=== PATIENT | male | born 1970 | race Caucasian/White ===

== ENCOUNTER 2017-03-15 15:42 | Inpatient (IN) | payer MEDICAID, OTHER ==
[2017-03-15] MEDS ORDERED: Sodium Chloride 0.9% 1,000 ML IV STA (16:33)
[2017-03-15] MEDS ORDERED: Folic Acid 1 MG, Thiamine 100 MG, Multivitamin (MVI) 10 ML in Dextrose 5% In Water 1,00... IV SCH (16:45)
--- NOTE | 2017-03-15 16:53 | ED PDOC ---
Arrival/HPI - General Chief Complaint: Abdominal Pain Time Seen by Provider: 03/15/17 15:57 Historian: Patient - History of Present Illness Narrative History of Present Illness (Text): 03/15/17 16:52 46 year old male whose past medical history of alcohol use, states he chronically drinks, presents to the emergency department with epigastric pain and episode of bloody vomiting prior to arrival. No relieving or exacerbating factors. No chest pain, shortness of breath, or other complaints. Time/Duration: Prior to Arrival Symptom Onset: Sudden Symptom Course: Unchanged Modifying Factors (Text): None Past Medical History - Provider Review Nursing Documentation Reviewed: Yes - Infectious Disease Hx of Infectious Diseases: None - Tetanus Immunization Tetanus Immunization: Unknown - Past Medical History Past Medical History: No Previous - Cardiac Hx Cardiac Disorders: No Hx Hypertension: No - Pulmonary Hx Respiratory Disorders: No Hx Tuberculosis: No - Neurological Hx Neurological Disorder: No HX Cerebrovascular Accident: No Hx Seizures: No (Denies withdrawl seizures) - HEENT Hx HEENT Disorder: No - Renal Hx Renal Disorder: No - Endocrine/Metabolic Hx Endocrine Disorders: No - Hematological/Oncological Hx Blood Disorders: No Hx Cancer: No - Musculoskeletal/Rheumatological Hx Falls: No - Genitourinary/Gynecological Hx Sexually Transmitted Diseases: No - Psychiatric Hx Depression: No Hx Emotional Abuse: No Hx Physical Abuse: No Hx Substance Use: No - Surgical History Hx Appendectomy: Yes - Anesthesia Hx Anesthesia: Yes Hx Anesthesia Reactions: No - Suicidal Assessment Feels Threatened In Home Enviroment: No Family/Social History - Physician Review Nursing Documentation Reviewed: Yes Family/Social History: Unknown Family HX Smoking Status: Never Smoked Hx Alcohol Use: Yes Frequency of alcohol use: Daily Amount per day: 12 Hx Substance Use: No Hx Substance Use Treatment: No Allergies/Home Meds Allergies/Adverse Reactions: Allergies No Known Allergies Allergy (Verified 03/15/17 15:50) Home Medications: Home Meds Medication Instructions Recorded Confirmed No Known Home Med 11/08/16 03/15/17 Review of Systems - Review of Systems Systems not reviewed;Unavailable: Intoxicated Physical Exam - Physical Exam Narrative Physical Exam (Text): pt in no distress, no airway compromise, breathing without difficulty, good insp /exp effort. No signs of head/torso/extremity trauma. Following commands without difficulty. Head: Present: Atraumatic, Normocephalic. No: Tenderness, Contusion, Swelling, Ecchymosis, Abrasion, Laceration Pupils: Present: PERRL Extroacular Muscles: Present: EOMI Conjunctiva: Present: Normal Mouth: Present: Moist Mucous Membranes Neck: Present: Normal Range of Motion. No: MIDLINE TENDERNESS, Paraspinal Tenderness Respiratory/Chest: Present: Clear to Auscultation, Good Air Exchange. No: Respiratory Distress, Accessory Muscle Use Cardiovascular: Present: Regular Rate and Rhythm, Normal S1, S2. No: Murmurs Abdomen: Present: Normal Bowel Sounds. No: Tenderness, Distention, Peritoneal Signs, Rebound, Guarding Back: Present: Normal Inspection. No: Midline Tenderness, Paraspinal Tenderness Upper Extremity: Present: Normal Inspection. No: Cyanosis, Edema Lower Extremity: Present: Normal Inspection. No: Edema Neurological: Present: GCS=15, CN II-XII Intact Skin: Present: Warm, Dry, Normal Color. No: Rashes Lymphatic: Present: OX3, NI, NC Psychiatric: Present: Alert. No: Agitated 03/15/17 18:01 Vital Signs Reviewed: Yes Vital Signs Temp Pulse Resp BP Pulse Ox 03/15/17 20:08 98.2 F 74 18 130/70 99 03/15/17 15:56 97.8 F 71 18 117/71 98 Temperature: Afebrile Blood Pressure: Normal Pulse: Regular Respiratory Rate: Normal Appearance: Positive for: Comfortable Pain Distress: None Mental Status: No: Agitated, Lethargic Finger Stick Blood Glucose: 123 Medical Decision Making ED Course and Treatment: Impression: 46 year old male whose past medical history of alcohol use, states he chronically drinks, presents to the emergency department with epigastric pain and episode of bloody vomiting prior to arrival. On physical exam, patient has no acute findings. Differential Diagnosis include but are not limited to: Gastritis versus anemia versus upper GI bleed Plan: -- Chest X-ray -- Protonix -- IV fluids -- Labs -- Reassess and disposition Prior Visits: Notes and results from previous visits were reviewed. Patient last seen in the ED on 11/08/16 for alcohol intoxication and discharged home. Progress Notes: EKG shows NSR at [address]-segment elevations, normal intervals. with no prior for comparison. Interpreted by me. - Lab Interpretations Lab Results: 03/15/17 16:20 03/15/17 16:20 Lab Results 03/15/17 17:05: Urine Color Yellow, Urine Appearance Clear, Urine pH 6.5, Ur Specific [place] <= 1.005, Urine Protein 30 H, Urine Glucose (UA) Negative, Urine Ketones Negative, Urine Blood Trace-intact H, Urine Nitrate Negative, Urine Bilirubin Negative, Urine Urobilinogen 2.0 H, Ur Leukocyte Esterase Negative, Urine RBC 0 - 2, Urine WBC Negative, Ur Epithelial Cells 0 - 2, Urine Bacteria Trace 03/15/17 16:20: Transferrin 264.95, Alcohol, Quantitative 478 H* 03/15/17 16:20: TIBC 314 03/15/17 16:20: PT 12.3 H, INR 1.14 H, APTT 31.7 H 03/15/17 16:20: WBC 4.1 L D, RBC 3.83, Hgb 13.3 L, Hct 37.8 L, MCV 98.7, MCH 34.7, MCHC 35.2, RDW 14.5, Plt Count 54 L, MPV 10.4, Gran % 61.0, Lymph % (Auto ) 30.4, Gregory % (Auto) 6.9 H, Eos % (Auto) 0.5 L, Baso % (Auto) 1.2, Gran # 2.49 , Lymph # 1.2, Gregory # 0.3, Eos # 0.0, Baso # 0.05 03/15/17 16:20: Blood Type O POSITIVE, Antibody Screen Negative, BBK History Checked No verified bt 03/15/17 16:20: Sodium 143, Potassium 3.8, Chloride 100, Carbon Dioxide 29, Anion Gap 18, BUN 5 L, Creatinine 0.6, Est GFR ( Amer) > 60, Est GFR (Non -Af Amer) > 60, Random Glucose 101, Calcium 9.1, Ferritin 198.0, Total Bilirubin 1.5 H, AST 163 H, ALT 47, Alkaline Phosphatase 254 H, Lactate Dehydrogenase 822 H, Total Creatine Kinase 435 H, CK-MB (CK-2) 4.1 H, CK-MB (CK- 2) % Pending, Troponin I < 0.01, Total Protein 10.1 H, Albumin 4.7, Globulin 5.4 , Albumin/Globulin Ratio 0.9 L, Lipase 83 - RAD Interpretation Radiology Orders: 03/15/17 16:34 CHEST PORTABLE [RAD] Stat - EKG Interpretation Interpreted by ED Physician: Yes Type: 12 lead EKG - Medication Orders Current Medication Orders: Folic Acid 1 mg/ Thiamine HCl 100 mg/ Multivitamins/Vitamin C 10 ml/ Dextrose 1 ,011.2 mls @ 100 mls/hr IV .Q10H7M EDWIN Last Admin: 03/15/17 19:19 Dose: 100 mls/hr Discontinued Medications Sodium Chloride (Sodium Chloride 0.9%) 1,000 mls @ 1,000 mls/hr IV .Q1H STA Stop: 03/15/17 17:32 Last Admin: 03/15/17 17:03 Dose: 1,000 mls/hr Pantoprazole Sodium (Protonix Inj) 40 mg IVP STAT STA Stop: 03/15/17 16:34 Last Admin: 03/15/17 17:03 Dose: 40 mg ED OBSERVATION Date of observation admission: 03/15/17 Time of observation admission: 16:00 - Observation admission statement Patient is being placed in observation because:: alcohol intoxication - Goals of Observation Goals of observation are:: pending sobriety - Progress Note Progress Note: 03/15/17 18:00 Patient resting in no acute distress 03/15/17 21:19 On reevaluation, patient is alert and awake, not slurring speech, and is clinically sober. I again questioned patient about his symptoms earlier today. Patient again reports that he had hematemesis earlier. Patient will be observed in the hospital for further evaluation. Patient aware of and agrees with plan. 03/15/17 21:[address] Barlow, accepted pt to remote tele obs EKG shows normal sinus, 73 bpm, no ST segment elevations, PVC. Interpreted by me. Chest x-ray shows mild cardiomegaly, no infiltrates, no effusions. Interpreted by me. - Scribe Statement The provider has reviewed the documentation as recorded by the Terese Haywood Provider Scribe Attestation: All medical record entries made by the Scribe were at my direction and personally dictated by me. I have reviewed the chart and agree that the record accurately reflects my personal performance of the history, physical exam, medical decision making, and the department course for this patient. I have also personally directed, reviewed, and agree with the discharge instructions and disposition. Disposition/Present on Arrival - Present on Arrival Any Indicators Present on Arrival: No History of DVT/PE: No History of Uncontrolled Diabetes: No Urinary Catheter: No History of Decub. Ulcer: No History Surgical Site Infection Following: None - Disposition Have Diagnosis and Disposition been Completed?: Yes Diagnosis: Hematemesis Disposition: HOSPITALIZED Disposition Time: 16:00 Patient Plan: Observation Condition: STABLE
[2017-03-15 16:59] LABS: ADD MANUAL DIFF? NO
[2017-03-15 17:14] LABS: ALB/GLOB RATIO 0.9 (1.1-1.8); ALKALINE PHOSPHATASE 254 U/L (38-133); ALT/SGPT 47 U/L (7-56); AST/SGOT 163 U/L (15-59); BILIRUBIN,TOTAL 1.5 mg/dL (0.2-1.3); BLOOD UREA NITROGEN 5 mg/dL (7-21); CALCIUM 9.1 mg/dL (8.4-10.5); CARBON DIOXIDE 29 mmol/L (21-33); CHLORIDE 100 mmol/L (98-107); GFR AFRICAN-AMERICAN > 60; GLUCOSE,RANDOM 101 mg/dL (70-110); LIPASE 83 U/L (23-300); POTASSIUM 3.8 mmol/L (3.6-5.0); SODIUM 143 mmol/L (132-148); TOTAL PROTEIN 10.1 g/dL (5.8-8.3)
[2017-03-15 17:15] LABS: BASO # 0.05 K/mm3 (0.0-2.0); BASO % 1.2 % (0.0-3.0); EOS % 0.5 % (1.5-5.0); GRAN # 2.49 (1.4-6.5); HEMATOCRIT 37.8 % (42.0-52.0); LYMPH # 1.2 (1.2-3.4); LYMPH % 30.4 % (22.0-35.0); MEAN CELL VOLUME 98.7 fL (80.0-105.0); MEAN CORPUSCULAR HEMOGLOBIN 34.7 pg (25.0-35.0); MEAN CORPUSCULAR HGB CONC 35.2 g/dl (31.0-37.0); MEAN PLATELET VOLUME 10.4 fl (7.0-11.0); MONO # 0.3 (0.1-0.6); MONO % 6.9 % (1.0-6.0); PLATELET COUNT 54 10^3/uL (120.0-450.0); RED CELL DISTRIBUTION WIDTH 14.5 % (11.5-14.5); WHITE BLOOD COUNT 4.1 10^3/ul (4.5-11.0)
[2017-03-15 17:21] LABS: INR 1.14 (0.93-1.08); PARTIAL THROMBOPLASTIN TIME 31.7 Seconds (23.7-30.8)
[2017-03-15 17:27] LABS: TROPONIN I < 0.01 ng/mL
[2017-03-15 17:38] LABS: PH,URINE 6.5 (4.7-8.0); URINE BILIRUBIN NEGATIVE (NEGATIVE); URINE BLOOD TRACE-INTACT (NEGATIVE); URINE GLUCOSE (UA) NEGATIVE (NEGATIVE); URINE KETONE NEGATIVE (NEGATIVE); URINE LEUKOCYTE ESTERASE NEGATIVE Leu/uL (NEGATIVE); URINE PROTEIN 30 mg/dL (<30 mg/dL)
--- NOTE | 2017-03-15 17:42 | RAD ---
HISTORY: cough COMPARISON: No prior. FINDINGS: LUNGS: No active pulmonary disease. PLEURA: No significant pleural effusion identified, no pneumothorax apparent. CARDIOVASCULAR: Normal. OSSEOUS STRUCTURES: No significant abnormalities. VISUALIZED UPPER ABDOMEN: Normal. OTHER FINDINGS: None. IMPRESSION: No active disease.
[2017-03-15 17:44] LABS: URINE APPEARANCE CLEAR (CLEAR); URINE COLOR YELLOW (YELLOW)
[2017-03-15 18:00] LABS: URINE BACTERIA TRACE (NEG); URINE EPITHELIAL CELLS 0 - 2 /hpf (0-5); URINE RBC 0 - 2 /hpf (0-2); URINE WBC NEGATIVE /hpf (0-6)
[2017-03-15 20:41] LABS: TRANSFERRIN 264.95 mg/dL (206-381)
--- NOTE | 2017-03-15 22:56 | CP.PCM.HP ---
<Justin Ackerman - Last Filed: 03/16/17 00:32> History of Present Illness - History of Present Illness History of Present Illness: 46 year old male with past medical history of alcohol abuse presents to [facility] ED with RUQ abdominal pain and hematemesis. Patient reports he has been drinking a case of beer per day for the past 1 week. Patient last alcohol intake was this morning. Patient had 2 episodes of hematemesis this afternoon. Patient was not able to quantify the amount blood was in the vomit and no one else witnessed it. Patient reports his abdominal pain started 2 days ago. He describes the pain as sharp pain, non radiating, 8/10 in intensity. The pain exacerbates with movement. Patient have not eaten any food for the past 2 days, stating that he is very hungry. Patient has multiple ED visits for alcohol intoxication, with last time seen on 11/09/16. Denies trauma, loss of consciousness, headache, fever, chills, shortness of breath, cough, chest pain, diarrhea, constipation, or urinary symptoms. PMD: none PMHx: alcohol abuse PSHx: appendectomy 2010 Allergy: NKDA Social Hx: smokes 5 cigarettes daily, drinks beer daily, denies other drug use. Homeless, staying with a friend for past 2 weeks. Family Hx: non contributory Home med: none Present on Admission - Present on Admission Any Indicators Present on Admission: No History of DVT/PE: No History of Uncontrolled Diabetes: No Review of Systems - Constitutional Constitutional: As Per HPI. absent: Chills, Fever, Headache - EENT Eyes: As Per HPI. absent: Blurred Vision, Loss of Vision Ears: As Per HPI. absent: Dizziness Nose/Mouth/Throat: As Per HPI. absent: Nasal Trauma, Nose Pain - Cardiovascular Cardiovascular: As Per HPI. absent: Chest Pain, Chest Pain at Rest, Chest Pain with Activity, Palpitations, Pedal Edema, Syncope - Respiratory Respiratory: As Per HPI. absent: Cough, Dyspnea, Hemoptysis - Gastrointestinal Gastrointestinal: As Per HPI, Abdominal Pain, Hematemesis, Nausea, Vomiting. absent: Diarrhea - Genitourinary Genitourinary: As Per HPI. absent: Urinary Frequency, Urinary Hesitance, Urinary Urgency - Musculoskeletal Musculoskeletal: As Per HPI. absent: Deformity, Numbness, Tingling - Integumentary Integumentary: As Per HPI. absent: Swelling - Neurological Neurological: As Per HPI. absent: Dizziness, Numbness, Tremor, Vertigo - Psychiatric Psychiatric: As Per HPI. absent: Auditory Hallucinations, Depression, Hallucinations, Visual Hallucinations - Endocrine Endocrine: As Per HPI - Hematologic/Lymphatic Hematologic: As Per HPI Past Patient History - Infectious Disease Hx of Infectious Diseases: None - Tetanus Immunizations Tetanus Immunization: Unknown - Past Social History Smoking Status: Never Smoked - CARDIAC Hx Cardiac Disorders: No Hx Hypertension: No - PULMONARY Hx Respiratory Disorders: No Hx Tuberculosis: No - NEUROLOGICAL Hx Neurological Disorder: No HX Cerebrovascular Accident: No Hx Seizures: No (Denies withdrawl seizures) - HEENT Hx HEENT Problems: No - RENAL Hx Chronic Kidney Disease: No - ENDOCRINE/METABOLIC Hx Endocrine Disorders: No - HEMATOLOGICAL/ONCOLOGICAL Hx Blood Disorders: No Hx Cancer: No - MUSCULOSKELETAL/RHEUMATOLOGICAL Hx Falls: No - GENITOURINARY/GYNECOLOGICAL Hx Sexually Transmitted Disorders: No - PSYCHIATRIC Hx Depression: No Hx Emotional Abuse: No Hx Physical Abuse: No Hx Substance Use: No - SURGICAL HISTORY Hx Appendectomy: Yes - ANESTHESIA Hx Anesthesia: Yes Hx Anesthesia Reactions: No Meds Allergies/Adverse Reactions: Allergies Allergy/AdvReac Type Severity Reaction Status Date / Time No Known Allergies Allergy Verified 03/15/17 15:50 Physical Exam - Constitutional Appears: Non-toxic - Head Exam Head Exam: ATRAUMATIC, NORMAL INSPECTION, NORMOCEPHALIC - Eye Exam Eye Exam: Conjunctival injection, EOMI, PERRL - ENT Exam ENT Exam: Mucous Membranes Moist - Neck Exam Neck exam: Positive for: Normal Inspection - Respiratory Exam Respiratory Exam: Clear to Auscultation Bilateral, NORMAL BREATHING PATTERN. absent: Rhonchi, Wheezes, Respiratory Distress - Cardiovascular Exam Cardiovascular Exam: REGULAR RHYTHM, RRR, +S1, +S2 - GI/Abdominal Exam GI & Abdominal Exam: Normal Bowel Sounds, Soft Additional comments: RUQ abdominal tenderness, negative McBurney's point tenderness - Extremities Exam Extremities exam: Positive for: normal capillary refill, normal inspection, pedal pulses present. Negative for: pedal edema - Back Exam Back exam: NORMAL INSPECTION - Neurological Exam Neurological exam: Alert, Oriented x3 - Psychiatric Exam Psychiatric exam: Normal Affect, Normal Mood - Skin Skin Exam: Dry, Normal Color, Warm Results - Vital Signs Recent Vital Signs: Last Vital Signs Temp 98.2 F 03/15/17 20:08 Pulse 74 03/15/17 20:08 Resp 18 03/15/17 20:08 BP 130/70 03/15/17 20:08 Pulse Ox 99 03/15/17 20:08 - Labs Result Diagrams: 03/15/17 16:20 03/15/17 16:20 Labs: Laboratory Results - last 24 hr 03/15/17 18:00 Blood Type Confirm O POSITIVE Assessment & Plan - Assessment and Plan (Free Text) Assessment: 46 year old male with past medical history of alcohol abuse presents with hematemesis Plan: Hematemesis -Yoli Marie tear vs acute gastritis -Two episodes of self reported hematemesis associated with hx of heavy alcohol use -Hgb 13.3, follow up repeats -Protonix IV 40mg Q12 -IVF NS 125ml/hr -NPO -GI consult, Dr. Owens help appreciated Alcohol intoxication -[facility] protocol -Seizure precaution -Banana bag given in the ED -Start IVF NS 125ml/hr -Multivitamin, thiamine, folic acid po -Ativan 1mg Iv Q6 prn -Cessation is strongly advised -PT eval RUQ Abdominal pain -No leukocytosis, afebrile -Elevated AST -Serum alcohol 478 -Lipase not elevated -GI consult, Dr. Owens help appreciated Elevated CK -Total creatine kinase 435 -IVF NS 125ml/hr -Follow up AM labs Prophylactic measures -Protonix IV for GI ppx -SCD for DVT ppx <Nicola Barlow - Last Filed: 03/16/17 01:41> Results - Vital Signs Recent Vital Signs: Last Vital Signs Temp 98.5 F 03/16/17 00:11 Pulse 88 03/16/17 00:11 Resp 20 03/16/17 00:11 BP 137/81 03/16/17 00:11 Pulse Ox 97 03/16/17 00:11 - Labs Result Diagrams: 03/15/17 16:20 03/15/17 16:20 Labs: Laboratory Results - last 24 hr 03/15/17 18:00 Blood Type Confirm O POSITIVE Attending/Attestation - Attestation I have personally seen and examined this patient.: Yes I have fully participated in the care of the patient.: Yes I have reviewed all pertinent clinical information: Yes Notes (Text): 03/16/17 01:39 Patient was seen when he was in ISO room in the ER . Agree with history , physical examination , assessment and plan. On examination left leg has soft tissue swelling on proximal, lateral aspect , which is non tender. Both eyes are injected.Has tremors on outstreched arms.
[2017-03-16] MEDS: Sodium Chloride 0.9% 1,000 ML IV SCH (00:15)
[2017-03-16 02:04] LABS: HEMATOCRIT 33.3 % (42.0-52.0)
[2017-03-16 09:17] LABS: ADD MANUAL DIFF? NO
[2017-03-16 09:19] LABS: BASO # 0.02 K/mm3 (0.0-2.0); BASO % 0.6 % (0.0-3.0); EOS % 0.6 % (1.5-5.0); GRAN # 2.33 (1.4-6.5); GRAN % 72.4 % (50.0-68.0); HEMATOCRIT 33.3 % (42.0-52.0); LYMPH # 0.7 (1.2-3.4); LYMPH % 20.8 % (22.0-35.0); MEAN CELL VOLUME 98.8 fL (80.0-105.0); MEAN CORPUSCULAR HEMOGLOBIN 34.4 pg (25.0-35.0); MEAN CORPUSCULAR HGB CONC 34.8 g/dl (31.0-37.0); MEAN PLATELET VOLUME 10.8 fl (7.0-11.0); MONO # 0.2 (0.1-0.6); MONO % 5.6 % (1.0-6.0); PLATELET COUNT 37 10^3/uL (120.0-450.0); RED CELL DISTRIBUTION WIDTH 14.6 % (11.5-14.5); WHITE BLOOD COUNT 3.2 10^3/ul (4.5-11.0)
[2017-03-16 09:28] LABS: ALB/GLOB RATIO 0.9 (1.1-1.8); ALKALINE PHOSPHATASE 222 U/L (38-133); ALT/SGPT 42 U/L (7-56); AST/SGOT 122 U/L (15-59); BILIRUBIN,TOTAL 1.7 mg/dL (0.2-1.3); BLOOD UREA NITROGEN 4 mg/dL (7-21); CARBON DIOXIDE 26 mmol/L (21-33); CHLORIDE 103 mmol/L (98-107); GFR AFRICAN-AMERICAN > 60; GLUCOSE,RANDOM 97 mg/dL (70-110); POTASSIUM 3.5 mmol/L (3.6-5.0); SODIUM 140 mmol/L (132-148); TOTAL PROTEIN 8.2 g/dL (5.8-8.3)
[2017-03-16] MEDS ORDERED: Potassium Chloride 20 mEq ER Tab PO ONE (09:45)
[2017-03-16] MEDS: Multivitamin With Minerals Tab PO SCH (10:16)
[2017-03-16] MEDS ORDERED: Magnesium Sulfate 1 gm in D5W 1 GM/100 ML BAG IVPB ONE ×2 (10:18→11:21)
--- NOTE | 2017-03-16 10:32 | CP.PCM.CON ---
<Phililp Avilez - Last Filed: 03/16/17 13:17> History of Present Illness - History of Present Illness History of Present Illness: PGY4 GI Fellow Consult Note Patient is a 46yo male with PMHx significant for EtOH abuse who presented to the ED with abdominal pain, nausea and vomiting. The patient admits to heavy EtOH use with alcohol intake up until the day of admission. He is drinking anywhere from two 40 oz beers to 10+ bottles of beer per day. For the past two weeks he has had an intermittent, right-sided, poking abdominal pain. Pain does not radiation and worsens after bouts of alcohol intake. He states that he wakes each morning, nauseated and often vomits. On the morning of admission he awoke and vomited a mixture of bile and dark brown particles. He denies any soto red hematemesis. The patient goes long stretches without food and only alcohol intake, including the 2 days leading up to admission. He is homeless and living with a friend at present. Denies any melena, hematochezia, fever, chills, weight loss. PMHx: See HPI PSHx: Appendectomy FHx: Mother - DM Social: +Tobacco use (2-3 cig/day); +EtOH use daily; denies any illicit drug use Endo: Denies prior endoscopic evaluation Review of Systems - Constitutional Constitutional: absent: Anorexia, Chills, Fever - EENT Eyes: absent: Change in Vision Nose/Mouth/Throat: absent: Sore Throat - Cardiovascular Cardiovascular: absent: Chest Pain, Dyspnea, Edema - Respiratory Respiratory: absent: Cough, Hemoptysis, Excessive Mucous Production - Gastrointestinal Gastrointestinal: Abdominal Pain, Hematemesis, Nausea, Vomiting. absent: Bloating, Constipation, Cramping, Diarrhea, Dyspepsia, Dysphagia, Heartburn, Hematochezia, Loose Stools, Melena - Genitourinary Genitourinary: absent: Dysuria, Urinary Frequency, Urinary Urgency - Musculoskeletal Musculoskeletal: absent: Back Pain, Neck Pain - Integumentary Integumentary: absent: New Lesions, Rash - Neurological Neurological: absent: Dizziness, Numbness, Focal Weakness - Psychiatric Psychiatric: absent: Anxiety, Depression - Endocrine Endocrine: absent: Polydipsia, Polyphagia, Polyuria - Hematologic/Lymphatic Hematologic: absent: Easy Bleeding, Easy Bruising, Lymphadenopathy Past Patient History - Infectious Disease Hx of Infectious Diseases: None - Tetanus Immunizations Tetanus Immunization: Unknown - Past Social History Smoking Status: Never Smoked - CARDIAC Hx Cardiac Disorders: No Hx Hypertension: No - PULMONARY Hx Respiratory Disorders: No Hx Tuberculosis: No - NEUROLOGICAL Hx Neurological Disorder: No HX Cerebrovascular Accident: No Hx Seizures: No (Denies withdrawl seizures) - HEENT Hx HEENT Problems: No - RENAL Hx Chronic Kidney Disease: No - ENDOCRINE/METABOLIC Hx Endocrine Disorders: No - HEMATOLOGICAL/ONCOLOGICAL Hx Blood Disorders: No Hx Cancer: No - MUSCULOSKELETAL/RHEUMATOLOGICAL Hx Falls: No - GASTROINTESTINAL Hx Gastrointestinal Disorders: No - GENITOURINARY/GYNECOLOGICAL Hx Sexually Transmitted Disorders: No - PSYCHIATRIC Hx Depression: No Hx Emotional Abuse: No Hx Physical Abuse: No Hx Substance Use: No - SURGICAL HISTORY Hx Appendectomy: Yes - ANESTHESIA Hx Anesthesia: Yes Hx Anesthesia Reactions: No Meds Allergies/Adverse Reactions: Allergies Allergy/AdvReac Type Severity Reaction Status Date / Time No Known Allergies Allergy Verified 03/15/17 15:50 - Medications Medications: Current Medications Folic Acid (Folic Acid) 1 mg PO DAILY [facility] Last Admin: 03/16/17 10:16 Dose: 1 mg Magnesium Sulfate/Dextrose (Magnesium Sulfate 1 Gm/100 Ml D5w) 1 gm in 100 mls @ 100 mls/hr IVPB ONCE ONE Stop: 03/16/17 11:17 Lorazepam (Ativan) 1 mg IVP Q6H PRN; Protocol PRN Reason: Seizure activity Last Admin: 03/16/17 00:14 Dose: 1 mg Multivitamins/Minerals (Therapeutic-M Tab) 1 tab PO DAILY [facility] Last Admin: 03/16/17 10:16 Dose: 1 tab Pantoprazole Sodium (Protonix Inj) 40 mg IVP Q12 [facility] Last Admin: 03/16/17 10:16 Dose: 40 mg Thiamine HCl (Vitamin B1 Tab) 100 mg PO DAILY [facility] Last Admin: 03/16/17 10:16 Dose: 100 mg Physical Exam - Constitutional Appears: Non-toxic, Confused - Eye Exam Eye Exam: EOMI, PERRL - ENT Exam ENT Exam: Mucous Membranes Moist - Respiratory Exam Respiratory Exam: Clear to Auscultation Bilateral. absent: Rales, Rhonchi, Wheezes - Cardiovascular Exam Cardiovascular Exam: RRR, +S1, +S2 - GI/Abdominal Exam GI & Abdominal Exam: Normal Bowel Sounds, Soft. absent: Distended, Firm, Guarding, Organomegaly, Rigid, Tenderness - Extremities Exam Extremities exam: Positive for: normal inspection. Negative for: pedal edema - Neurological Exam Neurological exam: Altered Additional comments: tremulous - Psychiatric Exam Psychiatric exam: Anxious - Skin Skin Exam: Dry, Warm Results - Vital Signs Recent Vital Signs: Last Vital Signs Temp 98.4 F 03/16/17 08:26 Pulse 84 03/16/17 08:26 Resp 17 03/16/17 08:26 BP 142/81 03/16/17 08:26 Pulse Ox 95 03/16/17 08:26 - Labs Result Diagrams: 03/16/17 09:00 03/16/17 09:00 Labs: Laboratory Results - last 24 hr 03/15/17 03/16/17 03/16/17 18:00 01:30 09:00 WBC 3.2 L D RBC 3.37 L Hgb 11.8 L 11.6 L Hct 33.3 L 33.3 L MCV 98.8 MCH 34.4 MCHC 34.8 RDW 14.6 H Plt Count 37 L* MPV 10.8 Gran % 72.4 H Lymph % (Auto) 20.8 L Zavala % (Auto) 5.6 Eos % (Auto) 0.6 L Baso % (Auto) 0.6 Gran # 2.33 Lymph # 0.7 L Zavala # 0.2 Eos # 0.0 Baso # 0.02 Sodium Potassium Chloride Carbon Dioxide Anion Gap BUN Creatinine Est GFR ( Amer) Est GFR (Non-Af Amer) Random Glucose Calcium Magnesium Total Bilirubin AST ALT Alkaline Phosphatase Total Protein Albumin Globulin Albumin/Globulin Ratio Blood Type Confirm O POSITIVE 03/16/17 03/16/17 09:00 09:00 WBC RBC Hgb Hct MCV MCH MCHC RDW Plt Count MPV Gran % Lymph % (Auto) Zavala % (Auto) Eos % (Auto) Baso % (Auto) Gran # Lymph # Zavala # Eos # Baso # Sodium 140 Potassium 3.5 L Chloride 103 Carbon Dioxide 26 Anion Gap 15 BUN 4 L Creatinine 0.5 Est GFR ( Amer) > 60 Est GFR (Non-Af Amer) > 60 Random Glucose 97 Calcium 8.0 L Magnesium 1.5 L Total Bilirubin 1.7 H AST 122 H ALT 42 Alkaline Phosphatase 222 H Total Protein 8.2 Albumin 3.8 Globulin 4.3 Albumin/Globulin Ratio 0.9 L Blood Type Confirm Assessment & Plan - Assessment and Plan (Free Text) Assessment: Patient is a 46yo male with PMHx significant for EtOH abuse who presented to the ED with abdominal pain, nausea and vomiting. -RUQ abdominal pain -Nausea and vomiting -Acute alcohol intoxication -Impending alcohol withdrawal -Alcohol abuse, dependence -Thrombocytopenia Plan: -Suspect frequent nausea/vomiting related to the deleterious effects of alcohol consumption/withdrawal -IVF as ordered -Protonix 40mg IV QD; can switch to 40mg PO QAMAC when fully tolerating PO -Zofran PRN -CIWA protocol for EtOH withdrawal -Advance diet as tolerated -Check abd U/S -No plan for endoscopic intervention at this time -Autoimmune hepatitis work up and viral hepatitis serologies negative in the past -Thank you for allowing us to participate in the care of your patient. Will sign off. - Date & Time Date: 03/16/17 Time: 08:45 <Raj Bailey - Last Filed: 03/16/17 16:03> Meds - Medications Medications: Current Medications Folic Acid (Folic Acid) 1 mg PO DAILY [facility] Last Admin: 03/16/17 10:16 Dose: 1 mg Folic Acid 1 mg/ Thiamine HCl 100 mg/ Multivitamins/Vitamin C 10 ml/ Dextrose 1 ,011.2 mls @ 100 mls/hr IV .Q10H7M [facility] Lorazepam (Ativan) 1 mg PO Q4 [facility] PRN Reason: Protocol Lorazepam (Ativan) 2 mg IVP Q6H PRN; Protocol PRN Reason: Seizure activity Multivitamins/Minerals (Therapeutic-M Tab) 1 tab PO DAILY [facility] Last Admin: 03/16/17 10:16 Dose: 1 tab Pantoprazole Sodium (Protonix Inj) 40 mg IVP Q12 [facility] Last Admin: 03/16/17 10:16 Dose: 40 mg Thiamine HCl (Vitamin B1 Tab) 100 mg PO DAILY [facility] Last Admin: 03/16/17 10:16 Dose: 100 mg Results - Vital Signs Recent Vital Signs: Last Vital Signs Temp 98.4 F 03/16/17 08:26 Pulse 84 03/16/17 08:26 Resp 17 03/16/17 08:26 BP 142/81 03/16/17 08:26 Pulse Ox 95 03/16/17 08:26 - Labs Result Diagrams: 03/16/17 09:00 03/16/17 09:00 Labs: Laboratory Results - last 24 hr 03/15/17 03/16/17 03/16/17 18:00 01:30 09:00 WBC 3.2 L D RBC 3.37 L Hgb 11.8 L 11.6 L Hct 33.3 L 33.3 L MCV 98.8 MCH 34.4 MCHC 34.8 RDW 14.6 H Plt Count 37 L* MPV 10.8 Gran % 72.4 H Lymph % (Auto) 20.8 L Zavala % (Auto) 5.6 Eos % (Auto) 0.6 L Baso % (Auto) 0.6 Gran # 2.33 Lymph # 0.7 L Zavala # 0.2 Eos # 0.0 Baso # 0.02 Sodium Potassium Chloride Carbon Dioxide Anion Gap BUN Creatinine Est GFR ( Amer) Est GFR (Non-Af Amer) Random Glucose Calcium Magnesium Total Bilirubin AST ALT Alkaline Phosphatase Total Protein Albumin Globulin Albumin/Globulin Ratio Blood Type Confirm O POSITIVE 03/16/17 03/16/17 09:00 09:00 WBC RBC Hgb Hct MCV MCH MCHC RDW Plt Count MPV Gran % Lymph % (Auto) Zavala % (Auto) Eos % (Auto) Baso % (Auto) Gran # Lymph # Zavala # Eos # Baso # Sodium 140 Potassium 3.5 L Chloride 103 Carbon Dioxide 26 Anion Gap 15 BUN 4 L Creatinine 0.5 Est GFR ( Amer) > 60 Est GFR (Non-Af Amer) > 60 Random Glucose 97 Calcium 8.0 L Magnesium 1.5 L Total Bilirubin 1.7 H AST 122 H ALT 42 Alkaline Phosphatase 222 H Total Protein 8.2 Albumin 3.8 Globulin 4.3 Albumin/Globulin Ratio 0.9 L Blood Type Confirm Attending/Attestation - Attestation I have personally seen and examined this patient.: Yes I have fully participated in the care of the patient.: Yes I have reviewed all pertinent clinical information: Yes Notes (Text): 03/16/17 16:01 46 year old male with h/o EtOH abuse admitted with abdominal pain, nausea and vomiting. 1. Alcoholic hepatitis 2. Alcohol withdrawal Plan: -recommend PPI therapy -recommend hyrdation, mvi, banana bag -antiemetics as needed -therapy for etoh withdrawal -no indication for steroids -agree with US abdomen -no endoscopy warranted unless significant ongoing bleeding which has not been present
[2017-03-16] MEDS: Folic Acid 1 MG, Thiamine 100 MG, Multivitamin (MVI) 10 ML in Dextrose 5% In Water 1,00... IV SCH (16:44)
[2017-03-17] MEDS: Folic Acid 1 MG, Thiamine 100 MG, Multivitamin (MVI) 10 ML in Dextrose 5% In Water 1,00... IV SCH ×2 (01:31→22:37)
--- NOTE | 2017-03-17 01:45 | CARD ---
APPROVED REPORT EKG Measurement Heart [id number] <Conclusion> Normal sinus rhythm Possible Anterior infarct, age undetermined Abnormal ECG
--- NOTE | 2017-03-17 01:46 | CARD ---
APPROVED REPORT EKG Measurement Heart [id number] ID [id number] <Conclusion> Sinus rhythm with occasional premature ventricular complexes Otherwise normal ECG
[2017-03-17] MEDS: Sodium Chloride 0.9% 1,000 ML IV SCH (03:48)
[2017-03-17 07:23] LABS: ADD MANUAL DIFF? NO
[2017-03-17 07:38] LABS: BASO # 0.02 K/mm3 (0.0-2.0); BASO % 0.5 % (0.0-3.0); EOS % 0.7 % (1.5-5.0); GRAN # 2.76 (1.4-6.5); GRAN % 68.5 % (50.0-68.0); HEMATOCRIT 33.8 % (42.0-52.0); LYMPH # 0.9 (1.2-3.4); LYMPH % 22.6 % (22.0-35.0); MEAN CELL VOLUME 97.4 fL (80.0-105.0); MEAN CORPUSCULAR HEMOGLOBIN 34.3 pg (25.0-35.0); MEAN CORPUSCULAR HGB CONC 35.2 g/dl (31.0-37.0); MEAN PLATELET VOLUME 12.1 fl (7.0-11.0); MONO # 0.3 (0.1-0.6); MONO % 7.7 % (1.0-6.0); PLATELET COUNT 35 10^3/uL (120.0-450.0); RED CELL DISTRIBUTION WIDTH 14.1 % (11.5-14.5)
[2017-03-17 07:44] LABS: ALKALINE PHOSPHATASE 264 U/L (38-133); ALT/SGPT 40 U/L (7-56); AST/SGOT 132 U/L (15-59); BLOOD UREA NITROGEN 3 mg/dL (7-21); CALCIUM 8.7 mg/dL (8.4-10.5); CARBON DIOXIDE 26 mmol/L (21-33); CHLORIDE 98 mmol/L (98-107); GFR AFRICAN-AMERICAN > 60; GLUCOSE,RANDOM 116 mg/dL (70-110); MAGNESIUM 1.8 mg/dL (1.7-2.2); POTASSIUM 3.7 mmol/L (3.6-5.0); SODIUM 134 mmol/L (132-148)
--- NOTE | 2017-03-17 08:33 | US ---
HISTORY: elevated LFTs COMPARISON: None. TECHNIQUE: Sonographic evaluation of the abdomen. FINDINGS: LIVER: Measures 22.4 cm. There is diffuse increased echogenicity of the liver parenchyma. No mass. No intrahepatic bile duct dilatation. GALLBLADDER: There are small gallstones. No evidence of wall thickening, pericholecystic fluid or positive sonographic Espinoza's sign. COMMON BILE DUCT: Measures 4.0 mm. No stones. No dilatation. PANCREAS: Unremarkable as visualized. No mass. No ductal dilatation. RIGHT KIDNEY: Measures 13.3cm. Normal echogenicity. No calculus, mass, or hydronephrosis. LEFT KIDNEY: Measures 14.0cm. Normal echogenicity. No calculus, mass, or hydronephrosis. SPLEEN: Enlarged and measures 15.3 cm. Normal echotexture. AORTA: No aneurysmal dilatation. IVC: Unremarkable. OTHER FINDINGS: None. IMPRESSION: 1. Moderate hepatosplenomegaly. Diffuse increased echogenicity in the liver may reflect hepatic steatosis however parenchymal infectious/ inflammatory etiologies cannot be entirely excluded. Clinical and laboratory correlation is advised. 2. Cholelithiasis.
[2017-03-17] MEDS: Multivitamin With Minerals Tab PO SCH (09:15)
--- NOTE | 2017-03-17 14:57 | CP.PCM.PN ---
<Quiana Serrano - Last Filed: 03/17/17 15:01> Subjective - Date & Time of Evaluation Date of Evaluation: 03/17/17 Time of Evaluation: 08:55 - Subjective Subjective: Pt seen and evaluated at bedside. Pt denies SOB, N/V, diarrhea. Afebrile overnight. Objective - Vital Signs/Intake and Output Vital Signs (last 24 hours): Temp Pulse Resp BP Pulse Ox 99.3 F 80 18 138/56 L 96 03/17/17 07:51 03/17/17 07:51 03/17/17 07:51 03/17/17 07:51 03/17/17 07:51 Intake and Output: 03/17/17 03/17/17 06:59 18:59 Intake Total 2820 960 Output Total 200 400 Balance 2620 560 - Medications Medications: Current Medications Folic Acid (Folic Acid) 1 mg PO DAILY [facility] Last Admin: 03/17/17 09:15 Dose: 1 mg Folic Acid 1 mg/ Thiamine HCl 100 mg/ Multivitamins/Vitamin C 10 ml/ Dextrose 1 ,011.2 mls @ 100 mls/hr IV .Q10H7M [facility] Last Admin: 03/17/17 01:31 Dose: 100 mls/hr Lorazepam (Ativan) 1 mg PO Q4 [facility] PRN Reason: Protocol Last Admin: 03/17/17 13:30 Dose: 1 mg Lorazepam (Ativan) 1 mg IVP Q4H PRN; Protocol PRN Reason: Seizure activity Multivitamins/Minerals (Therapeutic-M Tab) 1 tab PO DAILY [facility] Last Admin: 03/17/17 09:15 Dose: 1 tab Pantoprazole Sodium (Protonix Inj) 40 mg IVP Q12 [facility] Last Admin: 03/17/17 09:15 Dose: 40 mg Thiamine HCl (Vitamin B1 Tab) 100 mg PO DAILY [facility] Last Admin: 03/17/17 09:15 Dose: 100 mg - Labs Labs: 03/17/17 07:00 03/17/17 07:00 PT 12.3 Seconds (9.9-11.8) H 03/15/17 16:20 INR 1.14 (0.93-1.08) H 03/15/17 16:20 APTT 31.7 Seconds (23.7-30.8) H 03/15/17 16:20 - Constitutional Appears: Non-toxic, No Acute Distress - Head Exam Head Exam: ATRAUMATIC, NORMOCEPHALIC - Eye Exam Eye Exam: EOMI, Normal appearance - Respiratory Exam Respiratory Exam: Clear to Ausculation Bilateral, NORMAL BREATHING PATTERN - Cardiovascular Exam Cardiovascular Exam: +S1, +S2. absent: Bradycardia - GI/Abdominal Exam GI & Abdominal Exam: Soft. absent: Tenderness - Exam External exam: absent: Ecchymosis, Erythema - Back Exam Back Exam: absent: CVA tenderness (L), CVA tenderness (R) - Neurological Exam Neurological Exam: Alert, Awake - Skin Skin Exam: Intact, Normal Color Assessment and Plan - Assessment and Plan (Free Text) Plan: 46 year old male with past medical history of alcohol abuse presents with Alcohol intoxication: Alcohol intoxication -[facility] protocol -Seizure precaution -IVF -Multivitamin, thiamine, folic acid po -Ativan prn -Cessation is strongly advised -PT eval Self-reported hematemesis -Two episodes of self reported hematemesis associated with hx of heavy alcohol use -Hgb 11.9, follow up repeats -Protonix IV 40mg Q12 -mechanical diet -GI consult, Dr. Owens help appreciated, no EGD planned currently RUQ Abdominal pain -No leukocytosis, afebrile -Elevated AST 138 -Serum alcohol 478 -Lipase not elevated -GI consult, Dr. Owens help appreciated -Abd U/S shows moderate hepatosplenomegaly -pt advised against ETOH ingestion -pt advised against construction work because increased risk of injury to enlarged spleen Prophylactic measures -Protonix IV for GI ppx -SCD for DVT ppx <Marie UMAÑA,Álvaro - Last Filed: 03/17/17 17:38> Objective - Vital Signs/Intake and Output Vital Signs (last 24 hours): Temp Pulse Resp BP Pulse Ox 99.3 F 80 18 138/56 L 96 03/17/17 07:51 03/17/17 07:51 03/17/17 07:51 03/17/17 07:51 03/17/17 07:51 Intake and Output: 03/17/17 03/17/17 06:59 18:59 Intake Total 2820 960 Output Total 200 400 Balance 2620 560 - Medications Medications: Current Medications Folic Acid (Folic Acid) 1 mg PO DAILY [facility] Last Admin: 03/17/17 09:15 Dose: 1 mg Folic Acid 1 mg/ Thiamine HCl 100 mg/ Multivitamins/Vitamin C 10 ml/ Dextrose 1 ,011.2 mls @ 100 mls/hr IV .Q10H7M [facility] Last Admin: 03/17/17 01:31 Dose: 100 mls/hr Lorazepam (Ativan) 1 mg PO Q4 [facility] PRN Reason: Protocol Last Admin: 03/17/17 13:30 Dose: 1 mg Lorazepam (Ativan) 2 mg PO Q6 PRN; Protocol PRN Reason: Symptoms of alcohol withdrawl Last Admin: 03/17/17 15:29 Dose: 2 mg Multivitamins/Minerals (Therapeutic-M Tab) 1 tab PO DAILY [facility] Last Admin: 03/17/17 09:15 Dose: 1 tab Pantoprazole Sodium (Protonix Inj) 40 mg IVP Q12 [facility] Last Admin: 03/17/17 09:15 Dose: 40 mg Thiamine HCl (Vitamin B1 Tab) 100 mg PO DAILY [facility] Last Admin: 03/17/17 09:15 Dose: 100 mg - Labs Labs: 03/17/17 07:00 03/17/17 07:00 PT 12.3 Seconds (9.9-11.8) H 03/15/17 16:20 INR 1.14 (0.93-1.08) H 03/15/17 16:20 APTT 31.7 Seconds (23.7-30.8) H 03/15/17 16:20 Attending/Attestation - Attestation I have personally seen and examined this patient.: Yes I have fully participated in the care of the patient.: Yes I have reviewed all pertinent clinical information, including history, physical exam and plan: Yes Notes (Text): 03/17/17 17:34 Patient was seen and examined with medical van driver .Agreed with resident assessment and plan. 46 yrs old male with chronic alcohol abuse was admitted with Nausea , vomiting , abdominal pain and questionable hemetemesis.Hemoglobin is stable.Patient went into alcohol withdrawal which are improving. His thrombocytopenia is due alcohol abuse and splenomegaly.There is no evidence of bleeding.Thrombocytopenia is stable since 24 hour, we will continue monitoring. The issue of chronic alcohol abuse was discussed in detail with him Management plan was discussed in detail with patient Education was provided.
[2017-03-18 08:20] LABS: ADD MANUAL DIFF? NO
[2017-03-18 08:29] LABS: BASO # 0.01 K/mm3 (0.0-2.0); BASO % 0.3 % (0.0-3.0); EOS % 0.8 % (1.5-5.0); GRAN # 2.93 (1.4-6.5); GRAN % 74.1 % (50.0-68.0); HEMATOCRIT 34.6 % (42.0-52.0); LYMPH # 0.5 (1.2-3.4); LYMPH % 13.4 % (22.0-35.0); MEAN CELL VOLUME 100.9 fL (80.0-105.0); MEAN CORPUSCULAR HEMOGLOBIN 34.1 pg (25.0-35.0); MEAN CORPUSCULAR HGB CONC 33.8 g/dl (31.0-37.0); MEAN PLATELET VOLUME 11.8 fl (7.0-11.0); MONO # 0.5 (0.1-0.6); MONO % 11.4 % (1.0-6.0); RED CELL DISTRIBUTION WIDTH 13.7 % (11.5-14.5)
[2017-03-18 08:33] LABS: PLATELET COUNT 30 10^3/uL (120.0-450.0)
[2017-03-18 08:40] LABS: ALB/GLOB RATIO 0.9 (1.1-1.8); ALKALINE PHOSPHATASE 246 U/L (38-133); ALT/SGPT 41 U/L (7-56); AST/SGOT 99 U/L (15-59); BILIRUBIN,TOTAL 2.2 mg/dL (0.2-1.3); BLOOD UREA NITROGEN 4 mg/dL (7-21); CALCIUM 8.9 mg/dL (8.4-10.5); CARBON DIOXIDE 26 mmol/L (21-33); CHLORIDE 100 mmol/L (98-107); GFR AFRICAN-AMERICAN > 60; GLUCOSE,RANDOM 148 mg/dL (70-110); SODIUM 135 mmol/L (132-148); TOTAL PROTEIN 8.6 g/dL (5.8-8.3)
[2017-03-18] MEDS ORDERED: Potassium Chloride 20 mEq ER Tab PO ONE (08:59)
[2017-03-18] MEDS: Multivitamin With Minerals Tab PO SCH (09:47)
[2017-03-18] MEDS: Folic Acid 1 MG, Thiamine 100 MG, Multivitamin (MVI) 10 ML in Dextrose 5% In Water 1,00... IV SCH (09:48)
[2017-03-18 10:17] LABS: MAGNESIUM 1.9 mg/dL (1.7-2.2); PHOSPHOROUS 2.1 mg/dL (2.5-4.5)
--- NOTE | 2017-03-18 14:23 | CP.PCM.PN ---
<Phillip Avilez - Last Filed: 03/18/17 14:20> Subjective - Date & Time of Evaluation Date of Evaluation: 03/18/17 Time of Evaluation: 10:45 - Subjective Subjective: PGY4 GI Fellow Progress Note Patient seen and examined bedside this morning. We have been asked to see the patient as there was some concern for hemoptysis. The patient has been going through alcohol withdrawal and is unable to provide any meaningful history at this time. One to one at bedside assisting with breakfast and patient is tolerating without issue. Discussed case with nursing staff who state that they are not aware of any hemoptysis or hematemesis since admission. Patient has not vomited since arrival. 12 system ROS cannot be performed given clinical condition. Objective - Vital Signs/Intake and Output Vital Signs (last 24 hours): Temp Pulse Resp BP Pulse Ox 98.2 F 105 H 19 140/86 98 03/18/17 07:46 03/18/17 07:46 03/18/17 07:46 03/18/17 07:46 03/18/17 07:46 Intake and Output: 03/18/17 03/18/17 06:59 18:59 Intake Total 2100 0 Balance 2100 0 - Medications Medications: Current Medications Folic Acid (Folic Acid) 1 mg PO DAILY [facility] Last Admin: 03/18/17 09:48 Dose: 1 mg Folic Acid 1 mg/ Thiamine HCl 100 mg/ Multivitamins/Vitamin C 10 ml/ Dextrose 1 ,011.2 mls @ 100 mls/hr IV .Q10H7M [facility] Last Admin: 03/18/17 09:48 Dose: 100 mls/hr Lorazepam (Ativan) 1 mg PO Q4 [facility] PRN Reason: Protocol Last Admin: 03/18/17 12:48 Dose: 1 mg Lorazepam (Ativan) 2 mg PO Q6 PRN; Protocol PRN Reason: Symptoms of alcohol withdrawl Last Admin: 03/18/17 05:40 Dose: 2 mg Lorazepam (Ativan) 1 mg IVP Q4H PRN; Protocol PRN Reason: Agitation Last Admin: 03/18/17 01:13 Dose: 1 mg Multivitamins/Minerals (Therapeutic-M Tab) 1 tab PO DAILY [facility] Last Admin: 03/18/17 09:47 Dose: 1 tab Pantoprazole Sodium (Protonix Inj) 40 mg IVP Q12 [facility] Last Admin: 03/18/17 09:47 Dose: 40 mg Thiamine HCl (Vitamin B1 Tab) 100 mg PO DAILY [facility] Last Admin: 03/18/17 09:47 Dose: 100 mg - Labs Labs: 03/18/17 07:30 03/18/17 07:30 PT 12.3 Seconds (9.9-11.8) H 03/15/17 16:20 INR 1.14 (0.93-1.08) H 03/15/17 16:20 APTT 31.7 Seconds (23.7-30.8) H 03/15/17 16:20 - Constitutional Appears: Confused - Eye Exam Eye Exam: PERRL - ENT Exam ENT Exam: Mucous Membranes Dry Additional comments: dried bloody lower lip - Respiratory Exam Respiratory Exam: Clear to Ausculation Bilateral. absent: Rales, Rhonchi, Wheezes - Cardiovascular Exam Cardiovascular Exam: Tachycardia, +S1, +S2 - GI/Abdominal Exam GI & Abdominal Exam: Soft, Normal Bowel Sounds. absent: Distended, Firm, Guarding, Rigid, Tenderness, Organomegaly - Extremities Exam Extremities Exam: Normal Inspection. absent: Pedal Edema - Neurological Exam Neurological Exam: Altered, Awake - Psychiatric Exam Psychiatric exam: Anxious - Skin Skin Exam: Diaphoretic, Warm Assessment and Plan - Assessment and Plan (Free Text) Assessment: Patient is a 46yo male with PMHx significant for EtOH abuse who presented to the ED with abdominal pain, nausea and vomiting. -Acute alcohol intoxication -Acute alcohol withdrawal -Alcohol abuse, dependence -Hepatosplenomegaly in the setting of alcohol abuse -Pancytopenia in the setting of alcohol abuse, likely myelosuppression Plan: -No evidence of any acute GI blood losses -NO observed vomiting/hematemesis -No plan for endoscopic intervention -Continue Protonix 40mg PO QAMAC -Diet as tolerated; encourage 1:1 feeding given altered mentation -[facility] protocol for EtOH withdrawal -Please re-consult as needed <Susan Hung - Last Filed: 03/18/17 14:35> Objective - Vital Signs/Intake and Output Vital Signs (last 24 hours): Temp Pulse Resp BP Pulse Ox 98.2 F 105 H 19 140/86 98 03/18/17 07:46 03/18/17 07:46 03/18/17 07:46 03/18/17 07:46 03/18/17 07:46 Intake and Output: 03/18/17 03/18/17 06:59 18:59 Intake Total 2100 0 Balance 2100 0 - Medications Medications: Current Medications Folic Acid (Folic Acid) 1 mg PO DAILY [facility] Last Admin: 03/18/17 09:48 Dose: 1 mg Folic Acid 1 mg/ Thiamine HCl 100 mg/ Multivitamins/Vitamin C 10 ml/ Dextrose 1 ,011.2 mls @ 100 mls/hr IV .Q10H7M [facility] Last Admin: 03/18/17 09:48 Dose: 100 mls/hr Lorazepam (Ativan) 1 mg PO Q4 [facility] PRN Reason: Protocol Last Admin: 03/18/17 12:48 Dose: 1 mg Lorazepam (Ativan) 2 mg PO Q6 PRN; Protocol PRN Reason: Symptoms of alcohol withdrawl Last Admin: 03/18/17 05:40 Dose: 2 mg Lorazepam (Ativan) 1 mg IVP Q4H PRN; Protocol PRN Reason: Agitation Last Admin: 03/18/17 01:13 Dose: 1 mg Multivitamins/Minerals (Therapeutic-M Tab) 1 tab PO DAILY [facility] Last Admin: 03/18/17 09:47 Dose: 1 tab Pantoprazole Sodium (Protonix Inj) 40 mg IVP Q12 [facility] Last Admin: 03/18/17 09:47 Dose: 40 mg Thiamine HCl (Vitamin B1 Tab) 100 mg PO DAILY [facility] Last Admin: 03/18/17 09:47 Dose: 100 mg - Labs Labs: 03/18/17 07:30 03/18/17 07:30 PT 12.3 Seconds (9.9-11.8) H 03/15/17 16:20 INR 1.14 (0.93-1.08) H 03/15/17 16:20 APTT 31.7 Seconds (23.7-30.8) H 03/15/17 16:20 Attending/Attestation - Attestation I have personally seen and examined this patient.: Yes I have fully participated in the care of the patient.: Yes I have reviewed all pertinent clinical information, including history, physical exam and plan: Yes Notes (Text): Patient seen and examined with GI fellow. Agree with his note as documented above with the following additions/exceptions. This is a 46 YOM with h/o EtOH abuse who presented to the abdominal pain, nausea/vomiting, ETOH level>400. The patient is unable to provide any meaningful history, in barrie vest/ restrains. Discussed with nursing staff/bedside aide, no reported episodes of emesis/hematemesis. He is tolerating diet without incident. H/H stable. Pancytopenia likely in setting of bone marrow suppression from ETOH. Would continue to monitor clinically for now, PPI daily. ETOH withdrawal management as per primary medical team. Monitor LFTs, DF=9, no indication for steroids for ETOH hepatitis. No plan for endoscopic intervention at present time. Please call with any further questions/concerns. 03/18/17 14:35
[2017-03-18] MEDS ORDERED: Potassium & Sodium Phosphate PO ONE (16:28)
--- NOTE | 2017-03-18 16:31 | CP.PCM.PN ---
<Quiana Serrano - Last Filed: 03/18/17 16:32> Subjective - Date & Time of Evaluation Date of Evaluation: 03/18/17 Time of Evaluation: 08:55 - Subjective Subjective: Pt seen and evaluated at bedside. Somnulent due to recent geodon administration , though was rousable and denies chest pain, n/v, abdominal pain, fever, urinary changes. Afebrile overnight. On wrist restraints and 1:1. Objective - Vital Signs/Intake and Output Vital Signs (last 24 hours): Temp Pulse Resp BP Pulse Ox 98.2 F 107 H 19 140/86 98 03/18/17 07:46 03/18/17 14:00 03/18/17 07:46 03/18/17 07:46 03/18/17 07:46 Intake and Output: 03/18/17 03/18/17 06:59 18:59 Intake Total 2100 0 Balance 2100 0 - Medications Medications: Current Medications Folic Acid (Folic Acid) 1 mg PO DAILY [facility] Last Admin: 03/18/17 09:48 Dose: 1 mg Folic Acid 1 mg/ Thiamine HCl 100 mg/ Multivitamins/Vitamin C 10 ml/ Dextrose 1 ,011.2 mls @ 100 mls/hr IV .Q10H7M [facility] Last Admin: 03/18/17 09:48 Dose: 100 mls/hr Lorazepam (Ativan) 1 mg PO Q4 [facility] PRN Reason: Protocol Last Admin: 03/18/17 16:03 Dose: 1 mg Lorazepam (Ativan) 2 mg PO Q6 PRN; Protocol PRN Reason: Symptoms of alcohol withdrawl Last Admin: 03/18/17 05:40 Dose: 2 mg Lorazepam (Ativan) 1 mg IVP Q4H PRN; Protocol PRN Reason: Agitation Last Admin: 03/18/17 01:13 Dose: 1 mg Multivitamins/Minerals (Therapeutic-M Tab) 1 tab PO DAILY [facility] Last Admin: 03/18/17 09:47 Dose: 1 tab Pantoprazole Sodium (Protonix Inj) 40 mg IVP Q12 [facility] Last Admin: 03/18/17 09:47 Dose: 40 mg Potassium Phos/Sodium Phos (Neutra-Phos) 1 pkt PO ONCE ONE Stop: 03/18/17 16:29 Thiamine HCl (Vitamin B1 Tab) 100 mg PO DAILY [facility] Last Admin: 03/18/17 09:47 Dose: 100 mg - Labs Labs: 03/18/17 07:30 03/18/17 07:30 PT 12.3 Seconds (9.9-11.8) H 03/15/17 16:20 INR 1.14 (0.93-1.08) H 03/15/17 16:20 APTT 31.7 Seconds (23.7-30.8) H 03/15/17 16:20 - Constitutional Appears: No Acute Distress, Unkempt - Head Exam Head Exam: ATRAUMATIC, NORMOCEPHALIC - Eye Exam Eye Exam: EOMI, Normal appearance - ENT Exam ENT Exam: Mucous Membranes Moist, Normal External Ear Exam - Respiratory Exam Respiratory Exam: Clear to Ausculation Bilateral, NORMAL BREATHING PATTERN - Cardiovascular Exam Cardiovascular Exam: Tachycardia, +S1, +S2 - GI/Abdominal Exam GI & Abdominal Exam: Soft. absent: Tenderness - Exam External exam: absent: Ecchymosis, Erythema - Extremities Exam Extremities Exam: absent: Pedal Edema, Tenderness - Skin Skin Exam: Intact, Normal Color Assessment and Plan - Assessment and Plan (Free Text) Plan: 46 year old male with past medical history of alcohol abuse presents with Alcohol intoxication, agitation: Alcohol intoxication -[facility] protocol -Seizure precaution -IVF -Multivitamin, thiamine, folic acid po -Ativan prn -Cessation of ETOH is strongly advised -PT eval Self-reported hematemesis -Two episodes of self reported hematemesis associated with hx of heavy alcohol use -Hgb 11.7, follow up repeats -Protonix IV 40mg Q12 -mechanical diet -GI consult, Dr. Owens help appreciated, no EGD planned currently RUQ Abdominal pain -No leukocytosis, afebrile -Elevated AST 138---> 99 -Serum alcohol 478 initally -Lipase not elevated -GI consult, Dr. Owens help appreciated -Abd U/S shows moderate hepatosplenomegaly -pt advised against ETOH ingestion -pt advised against construction work because increased risk of injury to enlarged spleen Prophylactic measures -Protonix IV for GI ppx -SCD for DVT ppx -on wrist restraints for pulling out lines, as well as 1:1 <Marie UMAÑA,Iqradefordneftali - Last Filed: 03/18/17 16:53> Objective - Vital Signs/Intake and Output Vital Signs (last 24 hours): Temp Pulse Resp BP Pulse Ox 99.5 F 81 18 115/78 98 03/18/17 16:47 03/18/17 16:47 03/18/17 16:47 03/18/17 16:47 03/18/17 16:47 Intake and Output: 03/18/17 03/18/17 06:59 18:59 Intake Total 2100 0 Balance 2100 0 - Medications Medications: Current Medications Folic Acid (Folic Acid) 1 mg PO DAILY [facility] Last Admin: 03/18/17 09:48 Dose: 1 mg Folic Acid 1 mg/ Thiamine HCl 100 mg/ Multivitamins/Vitamin C 10 ml/ Dextrose 1 ,011.2 mls @ 100 mls/hr IV .Q10H7M [facility] Last Admin: 03/18/17 09:48 Dose: 100 mls/hr Lorazepam (Ativan) 1 mg PO Q4 [facility] PRN Reason: Protocol Last Admin: 03/18/17 16:03 Dose: 1 mg Lorazepam (Ativan) 2 mg PO Q6 PRN; Protocol PRN Reason: Symptoms of alcohol withdrawl Last Admin: 03/18/17 05:40 Dose: 2 mg Lorazepam (Ativan) 1 mg IVP Q4H PRN; Protocol PRN Reason: Agitation Last Admin: 03/18/17 01:13 Dose: 1 mg Multivitamins/Minerals (Therapeutic-M Tab) 1 tab PO DAILY [facility] Last Admin: 03/18/17 09:47 Dose: 1 tab Pantoprazole Sodium (Protonix Inj) 40 mg IVP Q12 [facility] Last Admin: 03/18/17 09:47 Dose: 40 mg Thiamine HCl (Vitamin B1 Tab) 100 mg PO DAILY [facility] Last Admin: 03/18/17 09:47 Dose: 100 mg - Labs Labs: 03/18/17 07:30 03/18/17 07:30 PT 12.3 Seconds (9.9-11.8) H 03/15/17 16:20 INR 1.14 (0.93-1.08) H 03/15/17 16:20 APTT 31.7 Seconds (23.7-30.8) H 03/15/17 16:20 Attending/Attestation - Attestation I have personally seen and examined this patient.: Yes I have fully participated in the care of the patient.: Yes I have reviewed all pertinent clinical information, including history, physical exam and plan: Yes Notes (Text): 03/18/17 16:49 46 Yrs old male with h/o EtOH abuse who presented to the abdominal pain, nausea/ vomiting, ETOH level>400. There is no hemetmesis or melena since admission in the hospital.Hemoglobin is stable. He is tolerating diet without incident. Neutropenia and thrombocytopenia is due to l bone marrow suppression from alcohol abuse.Platelet count is slowly dropping, we will get hematology consult. . Patient is having ETOH withdrawal. on CIWA , requiring restraint as he was found to be confused and was at risk of fall. We will monitor LFTs, DF=9, no indication for steroids for ETOH hepatitis.
[2017-03-19] MEDS: Folic Acid 1 MG, Thiamine 100 MG, Multivitamin (MVI) 10 ML in Dextrose 5% In Water 1,00... IV SCH ×2 (06:54→10:57)
[2017-03-19 09:17] LABS: ADD MANUAL DIFF? NO
[2017-03-19 09:28] LABS: ALB/GLOB RATIO 0.9 (1.1-1.8); ALKALINE PHOSPHATASE 225 U/L (38-133); ALT/SGPT 46 U/L (7-56); AST/SGOT 110 U/L (15-59); BILIRUBIN,TOTAL 2.1 mg/dL (0.2-1.3); BLOOD UREA NITROGEN 8 mg/dL (7-21); CALCIUM 9.2 mg/dL (8.4-10.5); CARBON DIOXIDE 25 mmol/L (21-33); CHLORIDE 102 mmol/L (98-107); GFR AFRICAN-AMERICAN > 60; GLUCOSE,RANDOM 132 mg/dL (70-110); POTASSIUM 3.2 mmol/L (3.6-5.0); SODIUM 136 mmol/L (132-148); TOTAL PROTEIN 8.6 g/dL (5.8-8.3)
[2017-03-19 09:39] LABS: BASO # 0.04 K/mm3 (0.0-2.0); BASO % 0.8 % (0.0-3.0); EOS % 0.6 % (1.5-5.0); GRAN # 3.72 (1.4-6.5); GRAN % 72.3 % (50.0-68.0); HEMATOCRIT 34.6 % (42.0-52.0); LYMPH # 0.8 (1.2-3.4); MEAN CELL VOLUME 102.1 fL (80.0-105.0); MEAN CORPUSCULAR HEMOGLOBIN 34.8 pg (25.0-35.0); MEAN CORPUSCULAR HGB CONC 34.1 g/dl (31.0-37.0); MEAN PLATELET VOLUME 11.3 fl (7.0-11.0); MONO # 0.6 (0.1-0.6); MONO % 11.3 % (1.0-6.0); PLATELET COUNT 55 10^3/uL (120.0-450.0); RED CELL DISTRIBUTION WIDTH 13.9 % (11.5-14.5); WHITE BLOOD COUNT 5.1 10^3/ul (4.5-11.0)
[2017-03-19] MEDS ORDERED: Potassium Chloride 20 mEq ER Tab PO ONE (09:48)
[2017-03-19] MEDS ORDERED: diaZEpam 10 mg/2 ml Inj IVP PRN (09:49)
[2017-03-19] MEDS: Multivitamin With Minerals Tab PO SCH (10:55)
[2017-03-19 11:08] LABS: MAGNESIUM 1.9 mg/dL (1.7-2.2); PHOSPHOROUS 2.1 mg/dL (2.5-4.5)
--- NOTE | 2017-03-19 12:05 | CP.PCM.CON ---
History of Present Illness - History of Present Illness History of Present Illness: 46 year old male with a history of alcohol abuse, admitted with abdominal pain, hematemesis, found to be pancytopenic. The patient is currently receiving Ativan and was lethargic at the time of my evaluation limiting a history. Review of his medical records shows pancytopenia and elevated alcohol level by blood work and hepatosplenomegaly by imaging. Past medical, surgical, family, social history cannot be obtained from the patient. Allergies: NKA per documentation Review of systems: Cannot be obtained. Past Patient History - Infectious Disease Hx of Infectious Diseases: None - Tetanus Immunizations Tetanus Immunization: Unknown - Past Social History Smoking Status: Never Smoked - CARDIAC Hx Cardiac Disorders: No Hx Hypertension: No - PULMONARY Hx Respiratory Disorders: No Hx Tuberculosis: No - NEUROLOGICAL Hx Neurological Disorder: No HX Cerebrovascular Accident: No Hx Seizures: No (Denies withdrawl seizures) - HEENT Hx HEENT Problems: No - RENAL Hx Chronic Kidney Disease: No - ENDOCRINE/METABOLIC Hx Endocrine Disorders: No - HEMATOLOGICAL/ONCOLOGICAL Hx Blood Disorders: No Hx Cancer: No - MUSCULOSKELETAL/RHEUMATOLOGICAL Hx Falls: No - GASTROINTESTINAL Hx Gastrointestinal Disorders: No - GENITOURINARY/GYNECOLOGICAL Hx Sexually Transmitted Disorders: No - PSYCHIATRIC Hx Depression: No Hx Emotional Abuse: No Hx Physical Abuse: No Hx Substance Use: No - SURGICAL HISTORY Hx Appendectomy: Yes - ANESTHESIA Hx Anesthesia: Yes Hx Anesthesia Reactions: No Meds Allergies/Adverse Reactions: Allergies Allergy/AdvReac Type Severity Reaction Status Date / Time No Known Allergies Allergy Verified 03/15/17 15:50 - Medications Medications: Current Medications Diazepam (Valium) 5 mg IVP Q4H PRN; Protocol PRN Reason: Symptoms of alcohol withdrawl Folic Acid (Folic Acid) 1 mg PO DAILY [facility] Last Admin: 03/19/17 10:55 Dose: 1 mg Folic Acid 1 mg/ Thiamine HCl 100 mg/ Multivitamins/Vitamin C 10 ml/ Dextrose 1 ,011.2 mls @ 100 mls/hr IV .Q10H7M [facility] Last Admin: 03/19/17 10:57 Dose: 100 mls/hr Lorazepam (Ativan) 1 mg PO Q4 [facility] PRN Reason: Protocol Last Admin: 03/19/17 08:59 Dose: Not Given Lorazepam (Ativan) 2 mg PO Q6 PRN; Protocol PRN Reason: Symptoms of alcohol withdrawl Last Admin: 03/18/17 05:40 Dose: 2 mg Multivitamins/Minerals (Therapeutic-M Tab) 1 tab PO DAILY [facility] Last Admin: 03/19/17 10:55 Dose: 1 tab Pantoprazole Sodium (Protonix Ec Tab) 40 mg PO 0630 [facility] Thiamine HCl (Vitamin B1 Tab) 100 mg PO DAILY [facility] Last Admin: 03/19/17 10:55 Dose: 100 mg Physical Exam - Head Exam Head Exam: ATRAUMATIC - Eye Exam Eye Exam: Normal appearance - ENT Exam ENT Exam: Mucous Membranes Dry - Respiratory Exam Respiratory Exam: NORMAL BREATHING PATTERN - Cardiovascular Exam Cardiovascular Exam: +S1, +S2 - GI/Abdominal Exam GI & Abdominal Exam: Normal Bowel Sounds - Extremities Exam Extremities exam: Positive for: normal inspection - Neurological Exam Neurological exam: Oriented x3 - Psychiatric Exam Psychiatric exam: Flat Affect - Skin Skin Exam: Warm Results - Vital Signs Recent Vital Signs: Last Vital Signs Temp 99.5 F 03/18/17 16:47 Pulse 104 H 03/19/17 06:00 Resp 18 03/18/17 16:47 BP 115/78 03/18/17 16:47 Pulse Ox 98 03/18/17 16:47 - Labs Result Diagrams: 03/19/17 09:00 03/19/17 09:00 Labs: Laboratory Results - last 24 hr 03/19/17 03/19/17 03/19/17 09:00 09:00 09:00 WBC 5.1 D RBC 3.39 L Hgb 11.8 L Hct 34.6 L MCV 102.1 MCH 34.8 MCHC 34.1 RDW 13.9 Plt Count 55 L MPV 11.3 H Gran % 72.3 H Lymph % (Auto) 15.0 L [place] % (Auto) 11.3 H Eos % (Auto) 0.6 L Baso % (Auto) 0.8 Gran # 3.72 Lymph # 0.8 L [place] # 0.6 Eos # 0.0 Baso # 0.04 Sodium 136 Potassium 3.2 L Chloride 102 Carbon Dioxide 25 Anion Gap 12 BUN 8 Creatinine 0.7 Est GFR ( Amer) > 60 Est GFR (Non-Af Amer) > 60 Random Glucose 132 H Calcium 9.2 Phosphorus 2.1 L Magnesium 1.9 Total Bilirubin 2.1 H AST 110 H ALT 46 Alkaline Phosphatase 225 H Total Protein 8.6 H Albumin 4.0 Globulin 4.5 Albumin/Globulin Ratio 0.9 L Assessment & Plan (1) Pancytopenia Assessment and Plan: alcohol intoxication causing bone marrow suppression splenomegaly noted; may have splenic sequestration component. no transfusion indications counts should improve as alcohol cleared normal iron stores check HIV and hepatitis panel Thank you for this interesting consult Status: Acute
[2017-03-19] MEDS ORDERED: Potassium & Sodium Phosphate PO ONE (13:18)
--- NOTE | 2017-03-19 16:00 | CP.PCM.PN ---
<Quiana Serrano - Last Filed: 03/19/17 16:26> Subjective - Date & Time of Evaluation Date of Evaluation: 03/19/17 Time of Evaluation: 08:00 - Subjective Subjective: Pt seen and evaluated at bedside. Denies SOB, chest pain, n/v/abdominal pain, urinary changes. Afebrile overnight. Objective - Vital Signs/Intake and Output Vital Signs (last 24 hours): Temp Pulse Resp BP Pulse Ox 99.5 F 104 H 18 115/78 98 03/18/17 16:47 03/19/17 06:00 03/18/17 16:47 03/18/17 16:47 03/18/17 16:47 Intake and Output: 03/19/17 03/19/17 06:59 18:59 Intake Total 480 240 Output Total 900 Balance -420 240 - Medications Medications: Current Medications Diazepam (Valium) 5 mg IVP Q4H PRN; Protocol PRN Reason: Symptoms of alcohol withdrawl Folic Acid (Folic Acid) 1 mg PO DAILY [facility] Last Admin: 03/19/17 10:55 Dose: 1 mg Folic Acid 1 mg/ Thiamine HCl 100 mg/ Multivitamins/Vitamin C 10 ml/ Dextrose 1 ,011.2 mls @ 100 mls/hr IV .Q10H7M [facility] Last Admin: 03/19/17 10:57 Dose: 100 mls/hr Lorazepam (Ativan) 1 mg PO Q4 [facility] PRN Reason: Protocol Last Admin: 03/19/17 12:50 Dose: Not Given Lorazepam (Ativan) 2 mg PO Q6 PRN; Protocol PRN Reason: Symptoms of alcohol withdrawl Last Admin: 03/18/17 05:40 Dose: 2 mg Multivitamins/Minerals (Therapeutic-M Tab) 1 tab PO DAILY [facility] Last Admin: 03/19/17 10:55 Dose: 1 tab Pantoprazole Sodium (Protonix Ec Tab) 40 mg PO 0630 [facility] Thiamine HCl (Vitamin B1 Tab) 100 mg PO DAILY [facility] Last Admin: 03/19/17 10:55 Dose: 100 mg - Labs Labs: 03/19/17 09:00 03/19/17 09:00 PT 12.3 Seconds (9.9-11.8) H 03/15/17 16:20 INR 1.14 (0.93-1.08) H 03/15/17 16:20 APTT 31.7 Seconds (23.7-30.8) H 03/15/17 16:20 - Constitutional Appears: Unkempt, Agitated - Head Exam Head Exam: ATRAUMATIC, NORMOCEPHALIC - Eye Exam Eye Exam: EOMI, Normal appearance - Respiratory Exam Respiratory Exam: Clear to Ausculation Bilateral, NORMAL BREATHING PATTERN - Cardiovascular Exam Cardiovascular Exam: +S1, +S2. absent: Bradycardia - GI/Abdominal Exam GI & Abdominal Exam: Soft. absent: Tenderness - Exam External exam: absent: Ecchymosis, Erythema - Extremities Exam Extremities Exam: Normal Capillary Refill. absent: Tenderness - Neurological Exam Neurological Exam: Alert, Awake - Skin Skin Exam: Normal Color, Warm Assessment and Plan - Assessment and Plan (Free Text) Plan: 46 year old male with past medical history of alcohol abuse presents with Alcohol intoxication, agitation: Alcohol intoxication -[facility] protocol -Seizure precaution -IVF -Multivitamin, thiamine, folic acid po -Ativan prn fpr ETOH withdrawal, diazepam PRN for severe withdrawal -Cessation of ETOH is strongly advised -PT eval Self-reported hematemesis -Two episodes of self reported hematemesis associated with hx of heavy alcohol use, no hemetemesis nor melena in hospital since admission -Hgb 11.8, follow up repeats -Protonix IV 40mg Q12 -mechanical diet -GI consult, Dr. Owens help appreciated, no EGD planned currently RUQ Abdominal pain -No leukocytosis, afebrile -Elevated AST 138---> 99--->110 -Serum alcohol 478 initally -Lipase not elevated -GI consult, Dr. Owens help appreciated -Abd U/S shows moderate hepatosplenomegaly -pt advised against ETOH ingestion -pt advised against construction work because increased risk of injury to enlarged spleen Thrombocytopenia today 30-->55 -bone marrow suppression from ETOH abuse -monitoring Heme consult appreciated. Prophylactic measures -Protonix IV for GI ppx -SCD for DVT ppx -on wrist restraints, as well as 1:1 <Marie UMAÑA,Iqraaustinneftali - Last Filed: 03/19/17 17:07> Objective - Vital Signs/Intake and Output Vital Signs (last 24 hours): Temp Pulse Resp BP Pulse Ox 99.5 F 104 H 18 115/78 98 03/18/17 16:47 03/19/17 06:00 03/18/17 16:47 03/18/17 16:47 03/18/17 16:47 Intake and Output: 03/19/17 03/19/17 06:59 18:59 Intake Total 480 240 Output Total 900 Balance -420 240 - Medications Medications: Current Medications Diazepam (Valium) 5 mg IVP Q4H PRN; Protocol PRN Reason: Symptoms of alcohol withdrawl Folic Acid (Folic Acid) 1 mg PO DAILY [facility] Last Admin: 03/19/17 10:55 Dose: 1 mg Folic Acid 1 mg/ Thiamine HCl 100 mg/ Multivitamins/Vitamin C 10 ml/ Dextrose 1 ,011.2 mls @ 100 mls/hr IV .Q10H7M [facility] Last Admin: 03/19/17 10:57 Dose: 100 mls/hr Lorazepam (Ativan) 1 mg PO Q4 [facility] PRN Reason: Protocol Last Admin: 03/19/17 16:57 Dose: Not Given Lorazepam (Ativan) 2 mg PO Q6 PRN; Protocol PRN Reason: Symptoms of alcohol withdrawl Last Admin: 03/18/17 05:40 Dose: 2 mg Multivitamins/Minerals (Therapeutic-M Tab) 1 tab PO DAILY [facility] Last Admin: 03/19/17 10:55 Dose: 1 tab Pantoprazole Sodium (Protonix Ec Tab) 40 mg PO 0630 [facility] Thiamine HCl (Vitamin B1 Tab) 100 mg PO DAILY [facility] Last Admin: 03/19/17 10:55 Dose: 100 mg - Labs Labs: 03/19/17 09:00 03/19/17 09:00 PT 12.3 Seconds (9.9-11.8) H 03/15/17 16:20 INR 1.14 (0.93-1.08) H 03/15/17 16:20 APTT 31.7 Seconds (23.7-30.8) H 03/15/17 16:20 Attending/Attestation - Attestation I have personally seen and examined this patient.: Yes I have fully participated in the care of the patient.: Yes I have reviewed all pertinent clinical information, including history, physical exam and plan: Yes Notes (Text): 03/19/17 17:05 Patient was seen and examined with medical accounts receivable specialist 46 Yrs old male with h/o EtOH abuse was admitted with abdominal pain, nausea/ vomiting, ETOH level>400. There is no hematemesis or melena since admission in the hospital. Hemoglobin is stable. He is tolerating diet without incident. He has Neutropenia and thrombocytopenia is due to bone marrow suppression from alcohol abuse. Platelet count is slowly improving, Patient is having ETOH withdrawal,, requiring restraint as he was found to be confused and was at risk of fall..We will continue monitoring. Prognosis is guarded
[2017-03-20] MEDS: Folic Acid 1 MG, Thiamine 100 MG, Multivitamin (MVI) 10 ML in Dextrose 5% In Water 1,00... IV SCH (00:30)
[2017-03-20] MEDS: Pantoprazole 40 mg EC Tab PO SCH (06:49)
[2017-03-20 08:05] LABS: HEMATOCRIT 34.7 % (42.0-52.0); MEAN CELL VOLUME 99.1 fL (80.0-105.0); MEAN CORPUSCULAR HEMOGLOBIN 34.3 pg (25.0-35.0); MEAN CORPUSCULAR HGB CONC 34.6 g/dl (31.0-37.0); MEAN PLATELET VOLUME 10.5 fl (7.0-11.0); RED CELL DISTRIBUTION WIDTH 14.6 % (11.5-14.5); WHITE BLOOD COUNT 5.6 10^3/ul (4.5-11.0)
[2017-03-20 08:26] LABS: ALB/GLOB RATIO 0.9 (1.1-1.8); ALKALINE PHOSPHATASE 232 U/L (38-133); ALT/SGPT 48 U/L (7-56); AST/SGOT 105 U/L (15-59); BILIRUBIN,TOTAL 1.8 mg/dL (0.2-1.3); BLOOD UREA NITROGEN 9 mg/dL (7-21); CARBON DIOXIDE 23 mmol/L (21-33); CHLORIDE 102 mmol/L (98-107); GFR AFRICAN-AMERICAN > 60; GLUCOSE,RANDOM 102 mg/dL (70-110); POTASSIUM 3.5 mmol/L (3.6-5.0); SODIUM 135 mmol/L (132-148); TOTAL PROTEIN 8.3 g/dL (5.8-8.3)
[2017-03-20] MEDS ORDERED: Potassium Chloride 20 mEq ER Tab PO ONE (08:44)
[2017-03-20] MEDS: Multivitamin With Minerals Tab PO SCH (09:16)
[2017-03-20] MEDS ORDERED: POLYETHYLENE GLYCOL 3350 17 GM/Dose PACKET PO ONE (09:31)
[2017-03-20 09:42] LABS: MAGNESIUM 1.9 mg/dL (1.7-2.2)
--- NOTE | 2017-03-20 21:39 | CP.PCM.PN ---
Subjective - Date & Time of Evaluation Date of Evaluation: 03/20/17 Time of Evaluation: 19:00 - Subjective Subjective: Appears comfortable Objective - Vital Signs/Intake and Output Vital Signs (last 24 hours): Temp Pulse Resp BP Pulse Ox 99.5 F 91 H 18 113/68 99 03/20/17 16:52 03/20/17 18:00 03/20/17 16:52 03/20/17 16:52 03/20/17 16:52 Intake and Output: 03/20/17 03/21/17 18:59 06:59 Intake Total 700 Output Total 750 Balance -50 - Medications Medications: Current Medications Diazepam (Valium) 5 mg IVP Q4H PRN; Protocol PRN Reason: Symptoms of alcohol withdrawl Docusate Sodium (Colace) 100 mg PO TID [facility] Last Admin: 03/20/17 17:02 Dose: Not Given Folic Acid (Folic Acid) 1 mg PO DAILY [facility] Last Admin: 03/20/17 09:16 Dose: 1 mg Lorazepam (Ativan) 2 mg PO Q8 [facility] PRN Reason: Protocol Last Admin: 03/20/17 13:40 Dose: 2 mg Multivitamins/Minerals (Therapeutic-M Tab) 1 tab PO DAILY [facility] Last Admin: 03/20/17 09:16 Dose: 1 tab Pantoprazole Sodium (Protonix Ec Tab) 40 mg PO 0630 [facility] Last Admin: 03/20/17 06:49 Dose: 40 mg Thiamine HCl (Vitamin B1 Tab) 100 mg PO DAILY [facility] Last Admin: 03/20/17 09:16 Dose: 100 mg - Labs Labs: 03/20/17 07:57 03/20/17 07:57 PT 12.3 Seconds (9.9-11.8) H 03/15/17 16:20 INR 1.14 (0.93-1.08) H 03/15/17 16:20 APTT 31.7 Seconds (23.7-30.8) H 03/15/17 16:20 - Head Exam Head Exam: ATRAUMATIC - Eye Exam Eye Exam: Normal appearance - ENT Exam ENT Exam: Mucous Membranes Dry - Respiratory Exam Respiratory Exam: NORMAL BREATHING PATTERN - Cardiovascular Exam Cardiovascular Exam: +S1, +S2 - GI/Abdominal Exam GI & Abdominal Exam: Normal Bowel Sounds - Extremities Exam Extremities Exam: Pedal Edema Assessment and Plan (1) Pancytopenia Assessment & Plan: alcohol induced bone marrow suppression counts improving Status: Acute
--- NOTE | 2017-03-20 23:55 | CP.PCM.PN ---
<Quiana Serrano - Last Filed: 03/21/17 01:00> Subjective - Date & Time of Evaluation Date of Evaluation: 03/20/17 Time of Evaluation: 08:45 - Subjective Subjective: Pt seen and evaluated at bedside. Pt denies SOB, n/v, chest pain, abdominal pain and urinary changes. Afebrile overnight. Objective - Vital Signs/Intake and Output Vital Signs (last 24 hours): Temp Pulse Resp BP Pulse Ox 99.5 F 91 H 18 113/68 99 03/20/17 16:52 03/20/17 18:00 03/20/17 16:52 03/20/17 16:52 03/20/17 16:52 Intake and Output: 03/20/17 03/21/17 18:59 06:59 Intake Total 700 800 Output Total 750 850 Balance -50 -50 - Medications Medications: Current Medications Diazepam (Valium) 5 mg IVP Q4H PRN; Protocol PRN Reason: Symptoms of alcohol withdrawl Docusate Sodium (Colace) 100 mg PO TID [facility] Last Admin: 03/20/17 17:02 Dose: Not Given Folic Acid (Folic Acid) 1 mg PO DAILY [facility] Last Admin: 03/20/17 09:16 Dose: 1 mg Lorazepam (Ativan) 2 mg PO Q8 [facility] PRN Reason: Protocol Last Admin: 03/20/17 22:13 Dose: 2 mg Multivitamins/Minerals (Therapeutic-M Tab) 1 tab PO DAILY [facility] Last Admin: 03/20/17 09:16 Dose: 1 tab Pantoprazole Sodium (Protonix Ec Tab) 40 mg PO 0630 [facility] Last Admin: 03/20/17 06:49 Dose: 40 mg Thiamine HCl (Vitamin B1 Tab) 100 mg PO DAILY [facility] Last Admin: 03/20/17 09:16 Dose: 100 mg - Labs Labs: 03/20/17 07:57 03/20/17 07:57 PT 12.3 Seconds (9.9-11.8) H 03/15/17 16:20 INR 1.14 (0.93-1.08) H 03/15/17 16:20 APTT 31.7 Seconds (23.7-30.8) H 03/15/17 16:20 - Additional Findings Additional findings: - Constitutional Appears: Unkempt, no acute distress - Head Exam Head Exam: ATRAUMATIC, NORMOCEPHALIC - Eye Exam Eye Exam: EOMI, Normal appearance - Respiratory Exam Respiratory Exam: Clear to Ausculation Bilateral, NORMAL BREATHING PATTERN - Cardiovascular Exam Cardiovascular Exam: +S1, +S2. absent: Bradycardia - GI/Abdominal Exam GI & Abdominal Exam: Soft. absent: Tenderness - Exam External exam: absent: Ecchymosis, Erythema - Extremities Exam Extremities Exam: Normal Capillary Refill. absent: Tenderness - Neurological Exam Neurological Exam: Alert, Awake - Skin Skin Exam: Normal Color, Warm Assessment and Plan - Assessment and Plan (Free Text) Plan: 46 year old male with past medical history of alcohol abuse presents with Alcohol intoxication: Alcohol intoxication -[facility] protocol -Seizure precaution -IVF -Multivitamin, thiamine, folic acid po -Ativan prn fpr ETOH withdrawal, diazepam PRN for severe withdrawal -Cessation of ETOH is strongly advised -PT eval Self-reported hematemesis -Two episodes of self reported hematemesis associated with hx of heavy alcohol use, no hemetemesis nor melena in hospital since admission -Hgb 12.0, follow up repeats -Protonix 40 PO -mechanical diet -GI consult, Dr. Owens help appreciated, no EGD planned currently RUQ Abdominal pain -No leukocytosis, afebrile -Elevated AST 138---> 99--->110-->105 -Serum alcohol 478 initally -Lipase not elevated -GI consult, Dr. Owens help appreciated -Abd U/S shows moderate hepatosplenomegaly -pt advised against ETOH ingestion -pt advised against construction work because increased risk of injury to enlarged spleen Thrombocytopenia today 30-->55-->81 -trend shows improvement -bone marrow suppression from ETOH abuse -monitoring Heme consult appreciated. Prophylactic measures -Protonix IV for GI ppx -SCD for DVT ppx -on 1:1 <Jessica Finn - Last Filed: 03/21/17 08:51> Objective - Vital Signs/Intake and Output Vital Signs (last 24 hours): Temp Pulse Resp BP Pulse Ox 98.6 F 74 18 112/69 96 03/21/17 07:53 03/21/17 07:53 03/21/17 07:53 03/21/17 07:53 03/21/17 07:53 Intake and Output: 03/21/17 03/21/17 06:59 18:59 Intake Total 1040 Output Total 850 Balance 190 - Medications Medications: Current Medications Diazepam (Valium) 5 mg IVP Q4H PRN; Protocol PRN Reason: Symptoms of alcohol withdrawl Docusate Sodium (Colace) 100 mg PO TID [facility] Last Admin: 03/20/17 17:02 Dose: Not Given Folic Acid (Folic Acid) 1 mg PO DAILY [facility] Last Admin: 03/20/17 09:16 Dose: 1 mg Lorazepam (Ativan) 2 mg PO Q8 [facility] PRN Reason: Protocol Last Admin: 03/21/17 05:34 Dose: 2 mg Multivitamins/Minerals (Therapeutic-M Tab) 1 tab PO DAILY [facility] Last Admin: 03/20/17 09:16 Dose: 1 tab Pantoprazole Sodium (Protonix Ec Tab) 40 mg PO 0630 [facility] Last Admin: 03/21/17 05:34 Dose: 40 mg Thiamine HCl (Vitamin B1 Tab) 100 mg PO DAILY [facility] Last Admin: 03/20/17 09:16 Dose: 100 mg - Labs Labs: 03/20/17 07:57 03/20/17 07:57 PT 12.3 Seconds (9.9-11.8) H 03/15/17 16:20 INR 1.14 (0.93-1.08) H 03/15/17 16:20 APTT 31.7 Seconds (23.7-30.8) H 03/15/17 16:20 Attending/Attestation - Attestation I have personally seen and examined this patient.: Yes I have fully participated in the care of the patient.: Yes I have reviewed all pertinent clinical information, including history, physical exam and plan: Yes Notes (Text): 03/21/17 08:50 Patient seen and examined at bedside. labs, vitals and notes reviewed. Calm and composed, AAOx3. Denies any new complaints. Agree with the plan to take off restraints,assisted ambulation and if remains calm then d/c 1:1. Continue rest of the plan as above.
[2017-03-21] MEDS: Pantoprazole 40 mg EC Tab PO SCH (05:34)
[2017-03-21 07:54] VITALS: O2SAT 96
[2017-03-21] MEDS: Multivitamin With Minerals Tab PO SCH (09:18)
[2017-03-21 11:25] LABS: HEMATOCRIT 34.4 % (42.0-52.0); MEAN CELL VOLUME 99.4 fL (80.0-105.0); MEAN CORPUSCULAR HEMOGLOBIN 34.7 pg (25.0-35.0); MEAN CORPUSCULAR HGB CONC 34.9 g/dl (31.0-37.0); MEAN PLATELET VOLUME 10.4 fl (7.0-11.0); RED CELL DISTRIBUTION WIDTH 14.5 % (11.5-14.5)
[2017-03-21 11:35] LABS: ALB/GLOB RATIO 0.9 (1.1-1.8); ALKALINE PHOSPHATASE 223 U/L (38-133); ALT/SGPT 50 U/L (7-56); AST/SGOT 94 U/L (15-59); BILIRUBIN,TOTAL 1.7 mg/dL (0.2-1.3); BLOOD UREA NITROGEN 11 mg/dL (7-21); CALCIUM 9.4 mg/dL (8.4-10.5); CARBON DIOXIDE 25 mmol/L (21-33); CHLORIDE 102 mmol/L (98-107); GFR AFRICAN-AMERICAN > 60; GLUCOSE,RANDOM 127 mg/dL (70-110); POTASSIUM 3.9 mmol/L (3.6-5.0); SODIUM 134 mmol/L (132-148); TOTAL PROTEIN 8.7 g/dL (5.8-8.3)
[2017-03-21 16:09] VITALS: BP 109/68; PULSE 72; RESP 20; TEMP 98.7
--- NOTE | 2017-03-21 17:03 | CP.PCM.DIS ---
<Quiana Serrano - Last Filed: 03/21/17 18:26> Provider - Provider Date of Admission: 03/17/17 14:55 Attending physician: Jessica Finn MD Primary care physician: NO PRIMARY CARE PROVIDER Consults: DR. Carey Time Spent in preparation of Discharge (in minutes): 35 Hospital Course - Lab Results Lab Results: Most Recent Lab Values WBC 5.0 10^3/ul (4.5-11.0) 03/21/17 11:15 RBC 3.46 10^6/uL (3.5-6.1) L 03/21/17 11:15 Hgb 12.0 gm/dL (14.0-18.0) L 03/21/17 11:15 Hct 34.4 % (42.0-52.0) L 03/21/17 11:15 MCV 99.4 fL (80.0-105.0) 03/21/17 11:15 MCH 34.7 pg (25.0-35.0) 03/21/17 11:15 MCHC 34.9 g/dl (31.0-37.0) 03/21/17 11:15 RDW 14.5 % (11.5-14.5) 03/21/17 11:15 Plt Count 100 10^3/uL (120.0-450.0) L 03/21/17 11:15 MPV 10.4 fl (7.0-11.0) 03/21/17 11:15 Gran % 72.3 % (50.0-68.0) H 03/19/17 09:00 Lymph % (Auto) 15.0 % (22.0-35.0) L 03/19/17 09:00 Millard % (Auto) 11.3 % (1.0-6.0) H 03/19/17 09:00 Eos % (Auto) 0.6 % (1.5-5.0) L 03/19/17 09:00 Baso % (Auto) 0.8 % (0.0-3.0) 03/19/17 09:00 Gran # 3.72 (1.4-6.5) 03/19/17 09:00 Lymph # 0.8 (1.2-3.4) L 03/19/17 09:00 Millard # 0.6 (0.1-0.6) 03/19/17 09:00 Eos # 0.0 (0.0-0.7) 03/19/17 09:00 Baso # 0.04 K/mm3 (0.0-2.0) 03/19/17 09:00 PT 12.3 Seconds (9.9-11.8) H 03/15/17 16:20 INR 1.14 (0.93-1.08) H 03/15/17 16:20 APTT 31.7 Seconds (23.7-30.8) H 03/15/17 16:20 Sodium 134 mmol/L (132-148) 03/21/17 11:15 Potassium 3.9 mmol/L (3.6-5.0) 03/21/17 11:15 Chloride 102 mmol/L (98-107) 03/21/17 11:15 Carbon Dioxide 25 mmol/L (21-33) 03/21/17 11:15 Anion Gap 11 (10-20) 03/21/17 11:15 BUN 11 mg/dL (7-21) 03/21/17 11:15 Creatinine 0.6 mg/dL (0.5-1.4) 03/21/17 11:15 Est GFR ( Amer) > 60 03/21/17 11:15 Est GFR (Non-Af Amer) > 60 03/21/17 11:15 Random Glucose 127 mg/dL (70-110) H 03/21/17 11:15 Calcium 9.4 mg/dL (8.4-10.5) 03/21/17 11:15 Phosphorus 4.0 mg/dL (2.5-4.5) 03/20/17 09:20 Magnesium 1.9 mg/dL (1.7-2.2) 03/20/17 09:20 TIBC 314 ug/dL (261-462) 03/15/17 16:20 Transferrin 264.95 mg/dL (206-381) 03/15/17 16:20 Ferritin 198.0 ng/mL 03/15/17 16:20 Total Bilirubin 1.7 mg/dL (0.2-1.3) H 03/21/17 11:15 AST 94 U/L (15-59) H 03/21/17 11:15 ALT 50 U/L (7-56) 03/21/17 11:15 Alkaline Phosphatase 223 U/L (38-133) H 03/21/17 11:15 Lactate Dehydrogenase 822 U/L (333-699) H 03/15/17 16:20 Total Creatine Kinase 435 U/L (35-230) H 03/15/17 16:20 CK-MB (CK-2) 4.1 ng/mL (0.0-3.6) H 03/15/17 16:20 CK-MB (CK-2) % Cancelled 03/15/17 16:20 Troponin I < 0.01 ng/mL 03/15/17 16:20 Total Protein 8.7 g/dL (5.8-8.3) H 03/21/17 11:15 Albumin 4.0 g/dL (3.0-4.8) 03/21/17 11:15 Globulin 4.6 gm/dL 03/21/17 11:15 Albumin/Globulin Ratio 0.9 (1.1-1.8) L 03/21/17 11:15 Lipase 83 U/L (23-300) 03/15/17 16:20 Urine Color Yellow (YELLOW) 03/15/17 17:05 Urine Appearance Clear (CLEAR) 03/15/17 17:05 Urine pH 6.5 (4.7-8.0) 03/15/17 17:05 Ur Specific Floyd <= 1.005 (1.005-1.035) 03/15/17 17:05 Urine Protein 30 mg/dL (<30 mg/dL) H 03/15/17 17:05 Urine Glucose (UA) Negative mg/dL (NEGATIVE) 03/15/17 17:05 Urine Ketones Negative mg/dL (NEGATIVE) 03/15/17 17:05 Urine Blood Trace-intact (NEGATIVE) H 03/15/17 17:05 Urine Nitrate Negative (NEGATIVE) 03/15/17 17:05 Urine Bilirubin Negative (NEGATIVE) 03/15/17 17:05 Urine Urobilinogen 2.0 E.U./dL (<1 E.U./dL) H 03/15/17 17:05 Ur Leukocyte Esterase Negative Vini/uL (NEGATIVE) 03/15/17 17:05 Urine RBC 0 - 2 /hpf (0-2) 03/15/17 17:05 Urine WBC Negative /hpf (0-6) 03/15/17 17:05 Ur Epithelial Cells 0 - 2 /hpf (0-5) 03/15/17 17:05 Urine Bacteria Trace (NEG) 03/15/17 17:05 Alcohol, Quantitative 478 mg/dL (0-10) H* 03/15/17 16:20 Blood Type O POSITIVE 03/15/17 16:20 Blood Type Confirm O POSITIVE 03/15/17 18:00 Antibody Screen Negative 03/15/17 16:20 BBK History Checked No verified bt 03/15/17 16:20 - Hospital Course Hospital Course: 46 year old male with past medical history of alcohol abuse [place] [facility] [place] RUQ abdominal pain and hematemesis. Patient reports he has been drinking a case of beer per day for the past 1 week. Patient last alcohol intake was this morning. Self-reported 2 episodes of hematemesis on afternoon of admission and abdominal pain started 2 days prior to ED presentation. Patient has multiple ED visits for alcohol intoxication, with last time seen on 11/09/16. ETOH level 487. Inpatient admit to telemetry for hematemesis and ETOH abuse. On floor, hematemsis adressed by hemoglobin monitoring and it was stable throughout course of admission and GI consult appreciated. Protonix administered but no evidence of hemetemesis, melena, so no EGD planned by GI. Diet was advanced and tolerated well by pt. For RUQ pain complaint, and elevated AST (initally 138), lipase was noted to be not elevated, and GI consult recc'd ABD u/s, which showed moderated hepatosplenomegaly. Pt was advised to avoid construction work and injury to his enlarged spleen. For thrombocytopenia, Heme consulted, and levels monitored. Bone marrow suppression for ETOH abuse, and throughout course of admission where ETOH was not available, platelet counts improved. For ETOH intoxication, seizure precautions and CIWA protocol placed, banana bag administered, and when diet advanced, PO multivitamin, folic acid and thiamine administered. When pt was unable to understand reasons for being in hospital, 1:1 and restraints were used , and as pt regained comprehension, both were lifted. PRN ativan was used and tapered down throughout admission and pt's withdrawal signs of tremor and inability to comprehend ameliorated throughout admission. Pt advised on ETOH cessation. Pt d/c home in stable condition with the following instructions: You are discharged home. Please go to the [facility] [place] [facility] [place] 3-4 days after discharge for liver function test. Please continue your home medications and take the following new medications: folic acid 1 mg by mouth daily, thiamine 100 mg by mouth daily and a multivitamin daily by mouth. You are advised both in person and here in writing about stopping the drinking of alcohol. Also, your spleen is mildly enlarged, so you were advised in person to avoid construction work or trauma to your upper left abdomen due to increased possibility of injury. Please return to the emergency department for worsening of symptoms. Discharge Exam - Additional Findings Additional findings: - Constitutional Appears: Normal appearance, no acute distress - Head Exam Head Exam: ATRAUMATIC, NORMOCEPHALIC - Eye Exam Eye Exam: EOMI, Normal appearance - Respiratory Exam Respiratory Exam: Clear to Ausculation Bilateral, NORMAL BREATHING PATTERN - Cardiovascular Exam Cardiovascular Exam: +S1, +S2. absent: Bradycardia - GI/Abdominal Exam GI & Abdominal Exam: Soft. absent: Tenderness - Exam External exam: absent: Ecchymosis, Erythema - Extremities Exam Extremities Exam: Normal Capillary Refill. absent: Tenderness - Neurological Exam Neurological Exam: Alert, Awake - Skin Skin Exam: Normal Color, Warm Discharge Plan - Discharge Medications Prescriptions: Folic Acid 1 mg PO DAILY #14 tab Multimineral/Multivitamin [Therapeutic-M Tab] 1 tab PO DAILY #14 tab Thiamine [Vitamin B1 Tab] 100 mg PO DAILY #14 tab - Follow Up Plan Condition: STABLE Disposition: HOME/ ROUTINE Instructions: Abuse of Alcohol (DC), Acute Nausea and Vomiting (DC) Additional Instructions: You are discharged home. Please go to the [facility] at [facility] [place] 3-4 days after discharge for liver function test. Please continue your home medications and take the following new medications: folic acid 1 mg by mouth daily, thiamine 100 mg by mouth daily and a multivitamin daily by mouth. You are advised both in person and here in writing about stopping the drinking of alcohol. Also, your spleen is mildly enlarged, so you were advised in person to avoid construction work or trauma to your upper left abdomen due to increased possibility of injury. Please return to the emergency department for worsening of symptoms. Referrals: [facility] [place] [facility] [place] PCP,NO [Primary Care Provider] - <Jessica Finn - Last Filed: 03/22/17 17:41> Provider - Provider Date of Admission: 03/17/17 14:55 Attending physician: Jessica Finn MD Primary care physician: NO PRIMARY CARE PROVIDER Hospital Course - Lab Results Lab Results: Most Recent Lab Values WBC 5.0 10^3/ul (4.5-11.0) 03/21/17 11:15 RBC 3.46 10^6/uL (3.5-6.1) L 03/21/17 11:15 Hgb 12.0 gm/dL (14.0-18.0) L 03/21/17 11:15 Hct 34.4 % (42.0-52.0) L 03/21/17 11:15 MCV 99.4 fL (80.0-105.0) 03/21/17 11:15 MCH 34.7 pg (25.0-35.0) 03/21/17 11:15 MCHC 34.9 g/dl (31.0-37.0) 03/21/17 11:15 RDW 14.5 % (11.5-14.5) 03/21/17 11:15 Plt Count 100 10^3/uL (120.0-450.0) L 03/21/17 11:15 MPV 10.4 fl (7.0-11.0) 03/21/17 11:15 Gran % 72.3 % (50.0-68.0) H 03/19/17 09:00 Lymph % (Auto) 15.0 % (22.0-35.0) L 03/19/17 09:00 Millard % (Auto) 11.3 % (1.0-6.0) H 03/19/17 09:00 Eos % (Auto) 0.6 % (1.5-5.0) L 03/19/17 09:00 Baso % (Auto) 0.8 % (0.0-3.0) 03/19/17 09:00 Gran # 3.72 (1.4-6.5) 03/19/17 09:00 Lymph # 0.8 (1.2-3.4) L 03/19/17 09:00 Millard # 0.6 (0.1-0.6) 03/19/17 09:00 Eos # 0.0 (0.0-0.7) 03/19/17 09:00 Baso # 0.04 K/mm3 (0.0-2.0) 03/19/17 09:00 PT 12.3 Seconds (9.9-11.8) H 03/15/17 16:20 INR 1.14 (0.93-1.08) H 03/15/17 16:20 APTT 31.7 Seconds (23.7-30.8) H 03/15/17 16:20 Sodium 134 mmol/L (132-148) 03/21/17 11:15 Potassium 3.9 mmol/L (3.6-5.0) 03/21/17 11:15 Chloride 102 mmol/L (98-107) 03/21/17 11:15 Carbon Dioxide 25 mmol/L (21-33) 03/21/17 11:15 Anion Gap 11 (10-20) 03/21/17 11:15 BUN 11 mg/dL (7-21) 03/21/17 11:15 Creatinine 0.6 mg/dL (0.5-1.4) 03/21/17 11:15 Est GFR ( Amer) > 60 03/21/17 11:15 Est GFR (Non-Af Amer) > 60 03/21/17 11:15 Random Glucose 127 mg/dL (70-110) H 03/21/17 11:15 Calcium 9.4 mg/dL (8.4-10.5) 03/21/17 11:15 Phosphorus 4.0 mg/dL (2.5-4.5) 03/20/17 09:20 Magnesium 1.9 mg/dL (1.7-2.2) 03/20/17 09:20 TIBC 314 ug/dL (261-462) 03/15/17 16:20 Transferrin 264.95 mg/dL (206-381) 03/15/17 16:20 Ferritin 198.0 ng/mL 03/15/17 16:20 Total Bilirubin 1.7 mg/dL (0.2-1.3) H 03/21/17 11:15 AST 94 U/L (15-59) H 03/21/17 11:15 ALT 50 U/L (7-56) 03/21/17 11:15 Alkaline Phosphatase 223 U/L (38-133) H 03/21/17 11:15 Lactate Dehydrogenase 822 U/L (333-699) H 03/15/17 16:20 Total Creatine Kinase 435 U/L (35-230) H 03/15/17 16:20 CK-MB (CK-2) 4.1 ng/mL (0.0-3.6) H 03/15/17 16:20 CK-MB (CK-2) % Cancelled 03/15/17 16:20 Troponin I < 0.01 ng/mL 03/15/17 16:20 Total Protein 8.7 g/dL (5.8-8.3) H 03/21/17 11:15 Albumin 4.0 g/dL (3.0-4.8) 03/21/17 11:15 Globulin 4.6 gm/dL 03/21/17 11:15 Albumin/Globulin Ratio 0.9 (1.1-1.8) L 03/21/17 11:15 Lipase 83 U/L (23-300) 03/15/17 16:20 Urine Color Yellow (YELLOW) 03/15/17 17:05 Urine Appearance Clear (CLEAR) 03/15/17 17:05 Urine pH 6.5 (4.7-8.0) 03/15/17 17:05 Ur Specific Floyd <= 1.005 (1.005-1.035) 03/15/17 17:05 Urine Protein 30 mg/dL (<30 mg/dL) H 03/15/17 17:05 Urine Glucose (UA) Negative mg/dL (NEGATIVE) 03/15/17 17:05 Urine Ketones Negative mg/dL (NEGATIVE) 03/15/17 17:05 Urine Blood Trace-intact (NEGATIVE) H 03/15/17 17:05 Urine Nitrate Negative (NEGATIVE) 03/15/17 17:05 Urine Bilirubin Negative (NEGATIVE) 03/15/17 17:05 Urine Urobilinogen 2.0 E.U./dL (<1 E.U./dL) H 03/15/17 17:05 Ur Leukocyte Esterase Negative Vini/uL (NEGATIVE) 03/15/17 17:05 Urine RBC 0 - 2 /hpf (0-2) 03/15/17 17:05 Urine WBC Negative /hpf (0-6) 03/15/17 17:05 Ur Epithelial Cells 0 - 2 /hpf (0-5) 03/15/17 17:05 Urine Bacteria Trace (NEG) 03/15/17 17:05 Alcohol, Quantitative 478 mg/dL (0-10) H* 03/15/17 16:20 Hepatitis A IgM Ab Negative (NEGATIVE) 03/20/17 07:00 Hep Bs Antigen Negative (NEGATIVE) 03/20/17 07:00 Hep B Core IgM Ab Negative (NEGATIVE) 03/20/17 07:00 Hepatitis C Antibody Negative (NEGATIVE) 03/20/17 07:00 HIV 1&2 Antibody Screen Negative (NEGATIVE) 03/20/17 07:00 Blood Type O POSITIVE 03/15/17 16:20 Blood Type Confirm O POSITIVE 03/15/17 18:00 Antibody Screen Negative 03/15/17 16:20 BBK History Checked No verified bt 03/15/17 16:20 Attending/Attestation - Attestation I have personally seen and examined this patient.: Yes I have fully participated in the care of the patient.: Yes I have reviewed all pertinent clinical information, including history, physical exam and plan: Yes Notes (Text): 03/22/17 17:40 Patient seen and examined at bedside. Vitals, labs, medications reviewed. PT evaluation done prior to discharge. No new complaints given. Reviewed and agree with the discharge plan outlined above.
== END 2017-03-21 17:00 | disposition home or self-care (01) | DRG 896 ==
LOC: ED 15:42 → EROBSV 17:58 → ERH 21:40 → 3RNO 23:17 → OBSVTOIN 03-17 14:55 → 3RNO 03-17 17:47
PROVIDERS: ADMIT Internal Medicine; ATTEND Internal Medicine
DX: F10.239 Alcohol dependence with withdrawal, unspecified (principal); K22.6 Gastro-esophageal laceration-hemorrhage syndrome; D61.818 Other pancytopenia; K92.0 Hematemesis; D70.9 Neutropenia, unspecified; F10.229 Alcohol dependence with intoxication, unspecified; K70.10 Alcoholic hepatitis without ascites; F17.210 Nicotine dependence, cigarettes, uncomplicated; Y90.8 Blood alcohol level of 240 mg/100 ml or more; Z59.0 Homelessness; Z78.1 Physical restraint status; Z83.3 Family history of diabetes mellitus; Z90.49 Acquired absence of other specified parts of digestive tract; R40.2412 Glasgow coma scale score 13-15, at arrival to emergency department; K29.00 Acute gastritis without bleeding; R16.1 Splenomegaly, not elsewhere classified; R16.2 Hepatomegaly with splenomegaly, not elsewhere classified

== ENCOUNTER 2017-07-08 20:09 | Observation (INO) | payer SELFPAY ==
[2017-07-08 20:34] VITALS: TEMP 98.5; BMI 29.8
--- NOTE | 2017-07-08 22:07 | ED PDOC ---
Arrival/HPI <Fabiola Villarreal - Last Filed: 07/09/17 06:09> - General Historian: Patient - History of Present Illness Time/Duration: 4-6 hours Symptom Onset: Gradual Symptom Course: Unchanged Context: Street <Ann Mendoza - Last Filed: 07/10/17 14:47> - General Chief Complaint: Alcohol Ingestion Time Seen by Provider: 07/08/17 22:03 - History of Present Illness Narrative History of Present Illness (Text): 07/08/17 22:04 Bry Huynh is a 46 year old male brought in by EMS who presents to the emergency department complaining of alcoholic intoxication tonight. As per EMS, the patient and his friend was sitting on a stoop when a stranger walking by called the police on both of them. Patient denies any complaints at this time. Patient admits to drinking alcohol today. (Ann Mendoza) Past Medical History - Provider Review Nursing Documentation Reviewed: Yes - Infectious Disease Hx of Infectious Diseases: None - Tetanus Immunization Tetanus Immunization: Unknown - Past Medical History Past Medical History: No Previous - Cardiac Hx Cardiac Disorders: No Hx Hypertension: No - Pulmonary Hx Respiratory Disorders: No Hx Tuberculosis: No - Neurological Hx Neurological Disorder: No HX Cerebrovascular Accident: No Hx Seizures: No (Denies withdrawl seizures) - HEENT Hx HEENT Disorder: No - Renal Hx Renal Disorder: No - Endocrine/Metabolic Hx Endocrine Disorders: No - Hematological/Oncological Hx Blood Disorders: No Hx Cancer: No - Musculoskeletal/Rheumatological Hx Falls: No - Gastrointestinal Hx Gastrointestinal Disorders: No - Genitourinary/Gynecological Hx Sexually Transmitted Diseases: No - Psychiatric Hx Depression: No Hx Emotional Abuse: No Hx Physical Abuse: No Hx Substance Use: No - Surgical History Hx Appendectomy: Yes - Anesthesia Hx Anesthesia: Yes Hx Anesthesia Reactions: No - Suicidal Assessment Feels Threatened In Home Enviroment: No <Ann Mendoza - Last Filed: 07/10/17 14:47> Family/Social History - Physician Review Nursing Documentation Reviewed: Yes Family/Social History: No Known Family HX Smoking Status: Never Smoked Hx Alcohol Use: Yes Amount per day: 12 Hx Substance Use: No Hx Substance Use Treatment: No <Ann Mendoza - Last Filed: 07/10/17 14:47> Allergies/Home Meds <Cherelle,Rafik - Last Filed: 07/09/17 06:09> <Ann Mendoza T - Last Filed: 07/10/17 14:47> Allergies/Adverse Reactions: Allergies No Known Allergies Allergy (Verified 03/15/17 15:50) Review of Systems - Physician Review All systems were reviewed & negative as marked: Yes - Review of Systems Constitutional: Other (Alcoholic Intoxication). absent: Fevers, Night Sweats Eyes: absent: Vision Changes ENT: absent: Hearing Changes Respiratory: absent: SOB, Cough Cardiovascular: absent: Chest Pain Gastrointestinal: absent: Abdominal Pain Genitourinary Male: absent: Dysuria, Frequency Musculoskeletal: absent: Arthralgias Skin: absent: Rash, Pruritis Neurological: absent: Headache Endocrine: absent: Diaphoresis <KellyAnn T - Last Filed: 07/10/17 14:47> Physical Exam Vital Signs Reviewed: Yes Temperature: Afebrile Blood Pressure: Normal Pulse: Regular Respiratory Rate: Normal Appearance: Positive for: Well-Appearing, Non-Toxic, Comfortable, Other ( Alcohol on breath) Pain Distress: None Mental Status: Positive for: Alert and Oriented X 3 Finger Stick Blood Glucose: 99 - Systems Exam Head: Present: Atraumatic, Normocephalic Pupils: Present: PERRL Extroacular Muscles: Present: EOMI Conjunctiva: Present: Normal Mouth: Present: Moist Mucous Membranes Neck: Present: Normal Range of Motion Respiratory/Chest: Present: Clear to Auscultation, Good Air Exchange. No: Respiratory Distress, Accessory Muscle Use Cardiovascular: Present: Regular Rate and Rhythm, Normal S1, S2. No: Murmurs Abdomen: Present: Normal Bowel Sounds. No: Tenderness, Distention, Peritoneal Signs Back: Present: Normal Inspection Upper Extremity: Present: Normal Inspection. No: Cyanosis, Edema Lower Extremity: Present: Normal Inspection. No: Edema Neurological: Present: GCS=15, CN II-XII Intact, Speech Normal Skin: Present: Warm, Dry, Normal Color. No: Rashes Psychiatric: Present: Alert, Oriented x 3, Normal Insight, Normal Concentration <YaseminJeremy del angelina T - Last Filed: 07/10/17 14:47> Vital Signs Temp Pulse Resp BP Pulse Ox 07/09/17 04:27 84 18 116/72 95 07/09/17 03:00 87 18 113/70 97 07/09/17 00:54 90 18 115/72 96 07/08/17 23:00 76 18 114/62 96 07/08/17 21:30 88 16 123/72 95 07/08/17 20:13 98.5 F 80 14 138/82 96 Medical Decision Making <Fabiola Villarreal - Last Filed: 07/09/17 06:09> <Ann Mendoza - Last Filed: 07/10/17 14:47> ED Course and Treatment: 07/09/17 02:47 Patient signed out to me by SALENA Mendoza. 07/09/17 02:46 On reevaluation, Patient is resting comfortably and is in no apparent distress. (Fabiola Villarreal) 07/08/17 47-year-old male presents without any complaints after being brought in by ambulance for alcohol intoxication Admits to drinking alcohol today. Alert and oriented Fingerstick in ER 95 We will observe the patient in the emergency room for sobriety 07/09/17 02:00 case signed out to dr. villarreal pending sobriety and disposition . (Ann Mendoza) ED OBSERVATION <Fabiola Villarreal - Last Filed: 07/09/17 06:09> Discharge: Yes Date of observation admission: 07/08/17 Time of observation admission: 21:00 <Ann Mendoza - Last Filed: 07/10/17 14:47> - Observation admission statement Patient is being placed in observation because:: Alcoholic Intoxication (Ann Mendoza) - Goals of Observation Goals of observation are:: sobriety (Ann Mendoza) - Progress Note Progress Note: 07/09/17 03:30 Patient resting comfortably 07/09/17 05:30 Patient resting comfortably 07/09/17 06:00 Patient awake, alert, and oriented x 3 and sober - ok for d/c. (Fabiola Villarreal) 07/08/17 23:00 stable vitals; sleeping in er; no distress. 07/09/17 01:03 pt sleeping; no distress; stable vitals 07/09/17 02:00 case signed out to dr. villarreal pending sobriety and disposition (Ann Mendoza) <Fabiola Villarreal - Last Filed: 07/09/17 06:09> - Scribe Statement The provider has reviewed the documentation as recorded by the Scribe <Ann Mendoza - Last Filed: 07/10/17 14:47> - Scribe Statement Erica Malone Provider Scribe Attestation: All medical record entries made by the Scribe were at my direction and personally dictated by me. I have reviewed the chart and agree that the record accurately reflects my personal performance of the history, physical exam, medical decision making, and the department course for this patient. I have also personally directed, reviewed, and agree with the discharge instructions and disposition. (Ann Mendoza) Disposition/Present on Arrival - Disposition Disposition Time: 21:00 Patient Plan: Discharge <Fabiola Villarreal - Last Filed: 07/09/17 06:09> - Present on Arrival Any Indicators Present on Arrival: No History of DVT/PE: No History of Uncontrolled Diabetes: No Urinary Catheter: No History of Decub. Ulcer: No History Surgical Site Infection Following: None - Disposition Have Diagnosis and Disposition been Completed?: Yes <Ann Mendoza - Last Filed: 07/10/17 14:47> - Disposition Diagnosis: Alcohol abuse Disposition: HOME/ ROUTINE Condition: GOOD
[2017-07-08 23:55] VITALS: RESP 18
[2017-07-09 04:28] VITALS: BP 116/72; PULSE 84; O2SAT 95
== END 2017-07-09 05:43 | disposition home or self-care (01) ==
LOC: ED 20:09 → EROBSV 21:00
PROVIDERS: ADMIT Emergency Medicine; ATTEND Emergency Medicine
DX: F10.10 Alcohol abuse, uncomplicated (principal)
CPT/HCPCS: 82948; 99284; G0378

== ENCOUNTER 2017-07-10 19:15 | Observation (INO) | payer SELFPAY ==
[2017-07-10 19:16] VITALS: BMI 29.8
[2017-07-10 19:30] VITALS: TEMP 98.1
--- NOTE | 2017-07-10 20:19 | ED PDOC ---
Arrival/HPI - General Chief Complaint: Alcohol Ingestion Time Seen by Provider: 07/10/17 20:18 Historian: Patient - History of Present Illness Narrative History of Present Illness (Text): 07/10/17 20:15 A 46 year old male was brought in by EMS presents to the emergency department for intoxication after being [place] the [place]. Patient admits to drinking a case of beer. Denies of any chest pain, abdominal pain, no shortness of breath. Pt states he has a scrape on his right forearm that he scrapped on a fence last night. Denies pain. No PMD Time/Duration: Prior to Arrival Past Medical History - Provider Review Nursing Documentation Reviewed: Yes - Travel History Have you recently traveled outside [place] w/in the past 3 mons?: No - Infectious Disease Hx of Infectious Diseases: None - Tetanus Immunization Tetanus Immunization: Unknown - Past Medical History Past Medical History: No Previous - Cardiac Hx Cardiac Disorders: No Hx Hypertension: No - Pulmonary Hx Respiratory Disorders: No Hx Tuberculosis: No - Neurological Hx Neurological Disorder: No HX Cerebrovascular Accident: No Hx Seizures: No (Denies withdrawl seizures) - HEENT Hx HEENT Disorder: No - Renal Hx Renal Disorder: No - Endocrine/Metabolic Hx Endocrine Disorders: No - Hematological/Oncological Hx Blood Disorders: No Hx Cancer: No - Musculoskeletal/Rheumatological Hx Falls: No - Gastrointestinal Hx Gastrointestinal Disorders: No - Genitourinary/Gynecological Hx Sexually Transmitted Diseases: No - Psychiatric Hx Depression: No Hx Emotional Abuse: No Hx Physical Abuse: No Hx Substance Use: No - Surgical History Hx Appendectomy: Yes - Anesthesia Hx Anesthesia: Yes Hx Anesthesia Reactions: No - Suicidal Assessment Feels Threatened In Home Enviroment: No Family/Social History - Physician Review Nursing Documentation Reviewed: Yes Family/Social History: No Known Family HX Smoking Status: Never Smoked Hx Alcohol Use: Yes Amount per day: 12 Hx Substance Use: No Hx Substance Use Treatment: No Allergies/Home Meds Allergies/Adverse Reactions: Allergies No Known Allergies Allergy (Verified 03/15/17 15:50) Review of Systems - Review of Systems Systems not reviewed;Unavailable: Intoxicated Constitutional: absent: Fatigue, Other (denies of any trauma or injuries) Cardiovascular: absent: Chest Pain Gastrointestinal: absent: Abdominal Pain Genitourinary Male: absent: Dysuria Musculoskeletal: absent: Arthralgias, Back Pain, Neck Pain Skin: Rash (abrasion right wrist). absent: Pruritis Neurological: absent: Headache, Dizziness Psychiatric: absent: Anxiety, Depression, Suicidal Ideation Physical Exam Vital Signs Reviewed: Yes Vital Signs Temp Pulse Resp BP Pulse Ox 07/11/17 03:00 80 18 121/83 99 07/11/17 01:00 79 18 120/80 99 07/10/17 23:00 80 18 121/85 96 07/10/17 21:16 82 17 122/90 95 07/10/17 19:28 98.1 F 82 18 118/64 99 Temperature: Afebrile Blood Pressure: Normal Pulse: Regular Respiratory Rate: Normal Appearance: Positive for: Non-Toxic, Comfortable, Unkept Pain Distress: None Mental Status: Positive for: Alert and Oriented X 3 Finger Stick Blood Glucose: 85 - Systems Exam Head: Present: Atraumatic Mouth: Present: Moist Mucous Membranes Neck: Present: Normal Range of Motion Respiratory/Chest: Present: Clear to Auscultation. No: Respiratory Distress, Accessory Muscle Use Cardiovascular: Present: Regular Rate and Rhythm Abdomen: No: Tenderness Back: Present: Normal Inspection Upper Extremity: Present: Normal ROM, NORMAL PULSES, Neurovascularly Intact, Capillary Refill < 2s, Other (healing abrasion to volar aspect of right wrist. no surrounding erythema; no edema. non tender. ). No: Tenderness, Swelling, Erythema, Deformity Lower Extremity: Present: Normal Inspection, Normal ROM Neurological: Present: GCS=15 Skin: Present: Warm, Dry Psychiatric: Present: Alert, Oriented x 3. No: Suicidal Ideation Medical Decision Making ED Course and Treatment: 07/10/17 20:53 46-year-old male presents today with alcohol intoxication. Admits to drinking alcohol today. Patient with abrasion to the right volar wrist; wound cleaned. Bacitracin applied. Tetanus updated Fingerstick 85 Will observe the patient in the emergency room for sobriety 07/10/17 22:20 07/11/17 02:00 pt non toxic well appearing; sleeping; stable vitals. case signed out to dr. luciano pending re-eval and disposition. - Medication Orders Current Medication Orders: Discontinued Medications Tetanus/Reduced Diphtheria/Acell Pertussis (Boostrix Vaccine Inj) 0.5 ml IM .ONCE ONE Stop: 07/10/17 20:52 Last Admin: 07/10/17 21:09 Dose: 0.5 ml MAR Immunization Data Document 07/10/17 21:09 EITAN (Rec: 07/10/17 21:11 [id number] Immunization Data Vaccine Lot Number [id number] Vaccine Expiration Date 06/30/19 ED OBSERVATION Discharge: Yes Date of observation admission: 07/10/17 Time of observation admission: 19:20 - Observation admission statement Patient is being placed in observation because:: alcohol intoxication - Goals of Observation Goals of observation are:: sobriety - Progress Note Progress Note: 07/10/17 22:19 pt non toxic well appearing; sleeping in er. no distress. 07/11/17 00:09 pt non toxic well appearing; sleeping. 07/11/17 02:00 pt non toxic well appearing; sleeping; stable vitals. case signed out to dr. luciano pending re-eval and disposition. - Scribe Statement The provider has reviewed the documentation as recorded by the Horacioibe Jorge Couch Provider Scribe Attestation: All medical record entries made by the Scribe were at my direction and personally dictated by me. I have reviewed the chart and agree that the record accurately reflects my personal performance of the history, physical exam, medical decision making, and the department course for this patient. I have also personally directed, reviewed, and agree with the discharge instructions and disposition. Disposition/Present on Arrival - Present on Arrival Any Indicators Present on Arrival: No History of DVT/PE: No History of Uncontrolled Diabetes: No Urinary Catheter: No History of Decub. Ulcer: No History Surgical Site Infection Following: None - Disposition Have Diagnosis and Disposition been Completed?: Yes Diagnosis: Alcohol abuse Disposition: HOME/ ROUTINE Disposition Time: 06:00 Patient Plan: Discharge Condition: IMPROVED
[2017-07-10] MEDS ORDERED: TDAP Vaccine 0.5 mL Syr IM ONE (20:51)
[2017-07-11 00:22] VITALS: RESP 18
[2017-07-11 05:24] VITALS: BP 126/82; PULSE 82; O2SAT 98
== END 2017-07-11 04:53 | disposition home or self-care (01) ==
LOC: ED 19:15 → EROBSV 19:20
PROVIDERS: ADMIT Emergency Medicine; ATTEND Emergency Medicine
DX: F10.10 Alcohol abuse, uncomplicated (principal); Z23 Encounter for immunization
CPT/HCPCS: 90471; 90715; 99284; G0378

== ENCOUNTER 2017-11-27 15:30 | Emergency (ER) | payer OTHER ==
[2017-11-27 16:21] VITALS: BMI 32.8
--- NOTE | 2017-11-27 16:25 | ED PDOC ---
Arrival/HPI - General Time Seen by Provider: 11/27/17 16:13 Historian: Patient - History of Present Illness Narrative History of Present Illness (Text): 11/27/17 16:21 46yo male with no PMhx who present with months history of left knee pain and lower back pain x days. Back pain is intermittent, achy with some movement, 6/ 10. He did not take any analgesia. He denies focal weakness, urinary/fecal incontinence, abdominal pain, urinary symptoms, trauma, any other complaint. Past Medical History - Provider Review Nursing Documentation Reviewed: Yes - Infectious Disease Hx of Infectious Diseases: None - Tetanus Immunization Tetanus Immunization: Unknown - Past Medical History Past Medical History: No Previous - Cardiac Hx Cardiac Disorders: No Hx Hypertension: No - Pulmonary Hx Respiratory Disorders: No Hx Tuberculosis: No - Neurological Hx Neurological Disorder: No HX Cerebrovascular Accident: No Hx Seizures: No (Denies withdrawl seizures) - HEENT Hx HEENT Disorder: No - Renal Hx Renal Disorder: No - Endocrine/Metabolic Hx Endocrine Disorders: No - Hematological/Oncological Hx Blood Disorders: No Hx Cancer: No - Musculoskeletal/Rheumatological Hx Falls: No - Gastrointestinal Hx Gastrointestinal Disorders: No - Genitourinary/Gynecological Hx Sexually Transmitted Diseases: No - Psychiatric Hx Depression: No Hx Emotional Abuse: No Hx Physical Abuse: No Hx Substance Use: No - Surgical History Hx Appendectomy: Yes - Anesthesia Hx Anesthesia: Yes Hx Anesthesia Reactions: No - Suicidal Assessment Feels Threatened In Home Enviroment: No Family/Social History - Physician Review Nursing Documentation Reviewed: Yes Family/Social History: Unknown Family HX Smoking Status: Never Smoked Hx Alcohol Use: Yes Amount per day: 12 Hx Substance Use: No Hx Substance Use Treatment: No Allergies/Home Meds Allergies/Adverse Reactions: Allergies No Known Allergies Allergy (Verified 11/27/17 16:20) Review of Systems - Physician Review All systems were reviewed & negative as marked: Yes - Review of Systems Constitutional: Normal Eyes: Normal ENT: Normal Respiratory: Normal Cardiovascular: Normal Gastrointestinal: Normal Genitourinary Male: Normal Musculoskeletal: Back Pain Skin: Normal Neurological: Normal Endocrine: Normal Hemo/Lymphatic: Normal Psychiatric: Normal Physical Exam Vital Signs Reviewed: Yes Temperature: Afebrile Blood Pressure: Normal Pulse: Regular Respiratory Rate: Normal Appearance: Positive for: Well-Appearing, Non-Toxic, Comfortable Pain Distress: None Mental Status: Positive for: Alert and Oriented X 3 - Systems Exam Head: Present: Atraumatic, Normocephalic Pupils: Present: PERRL Extroacular Muscles: Present: EOMI Conjunctiva: Present: Normal Mouth: Present: Moist Mucous Membranes Neck: Present: Normal Range of Motion Respiratory/Chest: Present: Clear to Auscultation, Good Air Exchange. No: Respiratory Distress, Accessory Muscle Use Cardiovascular: Present: Regular Rate and Rhythm, Normal S1, S2. No: Murmurs Abdomen: Present: Normal Bowel Sounds. No: Tenderness, Distention, Peritoneal Signs Back: No: Midline Tenderness, Paraspinal Tenderness, Pain with Leg Raise Upper Extremity: Present: Normal Inspection. No: Cyanosis, Edema Lower Extremity: Present: NORMAL PULSES, Normal ROM (Left knee), Neurovascularly Intact, Other (Nontender cyst noted on lateral left knee). No: Edema, Tenderness, Swelling, Erythema Neurological: Present: GCS=15, CN II-XII Intact, Speech Normal Skin: Present: Warm, Dry, Normal Color. No: Rashes Psychiatric: Present: Alert, Oriented x 3, Normal Insight, Normal Concentration Medical Decision Making ED Course and Treatment: 11/27/17 16:23 PT is ambulatory and have no focal neurological deficit. His PE was benign. No imaging will be done at this time. Treated with Ibuprofen in ED. Will Dc home with a rx of ibuprofen. Referred to his PMD/Clinic Disposition/Present on Arrival - Present on Arrival Any Indicators Present on Arrival: No History of DVT/PE: No History of Uncontrolled Diabetes: No Urinary Catheter: No History Surgical Site Infection Following: None - Disposition Have Diagnosis and Disposition been Completed?: Yes Diagnosis: Knee pain, left, Back pain Disposition: HOME/ ROUTINE Disposition Time: 16:30 Patient Plan: Discharge Condition: STABLE Discharge Instructions (ExitCare): Back Pain (ED), Knee Pain (ED) Additional Instructions: follow up with your doctor Return to Ed for any new or worsening symptoms Prescriptions: Ibuprofen [Motrin Tab] 600 mg PO Q6 #20 tab Referrals: [facility] [Outside] - Follow up with primary
[2017-11-27 16:28] VITALS: BP 123/78; PULSE 89; RESP 16; TEMP 97.9; O2SAT 96
== END 2017-11-27 16:48 | disposition home or self-care (01) ==
LOC: ED 15:30
DX: M25.562 Pain in left knee (principal); M54.5 Low back pain

== ENCOUNTER 2017-12-04 09:37 | Emergency (ER) | payer OTHER ==
[2017-12-04 09:58] VITALS: BMI 32.5
--- NOTE | 2017-12-04 10:44 | ED PDOC ---
Arrival/HPI - General Chief Complaint: Alcohol Ingestion Time Seen by Provider: 12/04/17 10:39 Historian: Patient - History of Present Illness Narrative History of Present Illness (Text): 12/04/17 10:40 This 46 yo male , homeless, alcohol abuse, is brought to this ED by ambulance for alcohol intoxication. Patient stated he had been drinking an undetermined amount of alcohol, when he fell sleep on the street. Patient was later found sleeping by BLS and brought to emergency department Patient is talkative and he stated feeling better. He denies somatic complains at this time. Denies trauma, diplopia, abdominal pain, shortness of breath, chest pain, cough, fever , abdominal pain, rectal bleeding, dizziness, or [place]. Time/Duration: Other (see hpi) Context: Home Past Medical History - Provider Review Nursing Documentation Reviewed: Yes - Infectious Disease Hx of Infectious Diseases: None - Tetanus Immunization Tetanus Immunization: Unknown - Past Medical History Past Medical History: No Previous - Cardiac Hx Cardiac Disorders: No - Pulmonary Hx Tuberculosis: No - Neurological Hx Neurological Disorder: No HX Cerebrovascular Accident: No Hx Seizures: No (Denies withdrawl seizures) - HEENT Hx HEENT Disorder: No - Renal Hx Renal Disorder: No - Endocrine/Metabolic Hx Endocrine Disorders: No - Hematological/Oncological Hx Blood Disorders: No - Integumentary Hx Dermatological Disorder: Yes - Musculoskeletal/Rheumatological Hx Falls: No - Gastrointestinal Hx Gastrointestinal Disorders: No - Genitourinary/Gynecological Hx Sexually Transmitted Diseases: No - Psychiatric Hx Substance Use: No - Surgical History Hx Appendectomy: Yes - Anesthesia Hx Anesthesia: Yes Hx Anesthesia Reactions: No Hx Malignant Hyperthermia: No - Suicidal Assessment Feels Threatened In Home Enviroment: No Family/Social History - Physician Review Nursing Documentation Reviewed: Yes Family/Social History: Other (noncontributory) Smoking Status: Current Some Days Smoker Hx Alcohol Use: Yes Frequency of alcohol use: Daily Amount per day: 12 Hx Substance Use: No Hx Substance Use Treatment: No Allergies/Home Meds Allergies/Adverse Reactions: Allergies No Known Allergies Allergy (Verified 11/27/17 16:20) Review of Systems - Review of Systems Constitutional: Normal. absent: Fatigue, Weight Change, Fevers Eyes: Normal ENT: Normal Respiratory: Normal Cardiovascular: Normal Gastrointestinal: Normal Genitourinary Male: Normal Musculoskeletal: Normal Skin: Normal Neurological: Normal Endocrine: Normal Hemo/Lymphatic: Normal Psychiatric: Other (alcohol intoxication). absent: Anxiety, Depression, Suicidal Ideation Physical Exam Vital Signs Temp Pulse Resp BP Pulse Ox 12/04/17 10:53 97.6 F 77 17 120/81 97 Temperature: Afebrile Blood Pressure: Normal Pulse: Regular Respiratory Rate: Normal Appearance: Positive for: Well-Appearing, Non-Toxic, Comfortable Pain Distress: None Mental Status: Positive for: Alert and Oriented X 3 - Systems Exam Head: Present: Atraumatic, Normocephalic Pupils: Present: PERRL Extroacular Muscles: Present: EOMI Conjunctiva: Present: Normal Mouth: Present: Moist Mucous Membranes Neck: Present: Normal Range of Motion Respiratory/Chest: Present: Clear to Auscultation, Good Air Exchange. No: Respiratory Distress, Accessory Muscle Use Cardiovascular: Present: Regular Rate and Rhythm, Normal S1, S2. No: Murmurs Abdomen: Present: Normal Bowel Sounds. No: Tenderness, Distention, Peritoneal Signs Back: Present: Normal Inspection Upper Extremity: Present: Normal Inspection. No: Cyanosis, Edema Lower Extremity: Present: Normal Inspection. No: Edema Neurological: Present: GCS=15, CN II-XII Intact, Speech Normal Skin: Present: Warm, Dry, Normal Color. No: Rashes Psychiatric: Present: Alert, Oriented x 3, Normal Insight, Normal Concentration Medical Decision Making ED Course and Treatment: 12/04/17 13:29 Re-evaluation. Patient feels better. Discussed results and plan with patient who expresses understanding. All questions answered and there is agreement with the plan to discharge home with instructions. Patient stable for discharge. Return if symptoms persist or worsen. Re-evaluation Time: 13:29 Reassessment Condition: Re-examined, Improved - Lab Interpretations Lab Results: Lab Results 12/04/17 10:11: POC Glucose (mg/dL) 78 Disposition/Present on Arrival - Present on Arrival Any Indicators Present on Arrival: No History of DVT/PE: No History of Uncontrolled Diabetes: No Urinary Catheter: No History of Decub. Ulcer: No History Surgical Site Infection Following: None - Disposition Have Diagnosis and Disposition been Completed?: Yes Diagnosis: Alcohol intoxication Disposition: HOME/ ROUTINE Disposition Time: 13:29 Patient Plan: Discharge Condition: GOOD Additional Instructions: Call private doctor in 1-2 days. Look for help for your addiction to alcohol, Return to emergency if you experience shaking, tremors, or palpitation Referrals: PCP,NO [Primary Care Provider] - Follow up with primary [facility] [Outside] - Follow up with primary [facility] [Outside] - Follow up with primary Forms: [employer] (Portuguese)
[2017-12-04 13:37] VITALS: BP 129/76; PULSE 68; RESP 18; TEMP 98; O2SAT 99
--- NOTE | 2017-12-06 09:32 | CARD ---
APPROVED REPORT EKG Measurement Heart [id number] <Conclusion> Normal sinus rhythm PRWP V 1 - 4 No change
== END 2017-12-04 13:59 | disposition home or self-care (01) ==
LOC: ED 09:37
DX: F10.129 Alcohol abuse with intoxication, unspecified (principal)

== ENCOUNTER 2018-01-28 16:15 | Emergency (ER) | payer OTHER ==
[2018-01-28 16:30] VITALS: BMI 32.9
--- NOTE | 2018-01-28 16:49 | ED PDOC ---
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 Pt. stated that he has been drinking all night, feeling tired and sitting on the side walk as he wants to sleep, admits fall on the left knee with no other injury, picked up by the ambulance, no homicidal/suicidal ideation, no auditory or visual hallucination, no night sweat, no rash. (Rolan Guillory) Past Medical History - Provider Review Nursing Documentation Reviewed: Yes - Infectious Disease Hx of Infectious Diseases: None - Tetanus Immunization Tetanus Immunization: Unknown - Past Medical History Past Medical History: No Previous - Cardiac Hx Cardiac Disorders: No - Pulmonary Hx Tuberculosis: No - Neurological Hx Neurological Disorder: No HX Cerebrovascular Accident: No Hx Seizures: No (Denies withdrawl seizures) - HEENT Hx HEENT Disorder: No - Renal Hx Renal Disorder: No - Endocrine/Metabolic Hx Endocrine Disorders: No - Hematological/Oncological Hx Blood Disorders: No - Integumentary Hx Dermatological Disorder: Yes - Musculoskeletal/Rheumatological Hx Falls: No - Gastrointestinal Hx Gastrointestinal Disorders: No - Genitourinary/Gynecological Hx Sexually Transmitted Diseases: No - Psychiatric Hx Depression: No Hx Emotional Abuse: No Hx Physical Abuse: No Hx Substance Use: No - Surgical History Hx Appendectomy: Yes - Anesthesia Hx Anesthesia: Yes Hx Anesthesia Reactions: No Hx Malignant Hyperthermia: No - Suicidal Assessment Feels Threatened In Home Enviroment: No <Rolan Guillory - Last Filed: 01/28/18 19:22> Family/Social History - Physician Review Nursing Documentation Reviewed: Yes Family/Social History: Unknown Family HX Smoking Status: Current Some Days Smoker Hx Alcohol Use: Yes Amount per day: 12 Hx Substance Use: No Hx Substance Use Treatment: No <Rolan Guillory - Last Filed: 01/28/18 19:22> Allergies/Home Meds <Rolan Guillory - Last Filed: 01/28/18 19:22> <Danielito Mast - Last Filed: 01/28/18 23:54> Allergies/Adverse Reactions: Allergies No Known Allergies Allergy (Verified 11/27/17 16:20) Review of Systems - Review of Systems Constitutional: absent: Fatigue, Fevers Eyes: absent: Vision Changes Respiratory: absent: SOB, Cough Cardiovascular: absent: Chest Pain Gastrointestinal: absent: Abdominal Pain, Diarrhea, Nausea, Vomiting Skin: Skin Lesions. absent: Rash, Pruritis, Laceration, Abscess, Ulcer, Cellulitis Neurological: absent: Headache, Dizziness Psychiatric: absent: Anxiety, Depression <Rolan Guillory Q - Last Filed: 01/28/18 19:22> Physical Exam Vital Signs Reviewed: Yes Temperature: Afebrile Blood Pressure: Normal Pulse: Regular Respiratory Rate: Normal Appearance: Positive for: Well-Appearing, Non-Toxic, Comfortable Pain Distress: Mild Mental Status: Positive for: Alert and Oriented X 3 - Systems Exam Head: Present: Atraumatic, Normocephalic Pupils: Present: PERRL Extroacular Muscles: Present: EOMI Conjunctiva: Present: Normal Mouth: Present: Moist Mucous Membranes Neck: Present: Normal Range of Motion Respiratory/Chest: Present: Clear to Auscultation, Good Air Exchange. No: Respiratory Distress, Accessory Muscle Use, Wheezes, Decreased Breath Sounds, Rales, Retracting, Rhonchi, Tachypneic, Tender to Palpation Cardiovascular: Present: Regular Rate and Rhythm, Normal S1, S2. No: Murmurs Abdomen: No: Tenderness, Distention, Peritoneal Signs Back: Present: Normal Inspection Upper Extremity: Present: Normal Inspection. No: Cyanosis, Edema Lower Extremity: Present: Normal Inspection, Other (Lt. knee: lateral skin lipoma noted approx. 3cm diameter, no fluctuant abscess, no cellulitis, no septic joint, FROM without limitation, sensation intact, motor 5/5, ). No: Edema Neurological: Present: GCS=15, Speech Normal, Motor Func Grossly Intact, Gait Normal, Memory Normal Skin: Present: Warm, Dry, Normal Color. No: Rashes Psychiatric: Present: Alert, Oriented x 3, Normal Insight, Normal Concentration <Rolan Guillory Q - Last Filed: 01/28/18 19:22> Vital Signs Temp Pulse Resp BP Pulse Ox 01/28/18 20:48 97.6 F 77 16 100/59 L 99 01/28/18 18:48 82 16 132/86 99 01/28/18 16:27 97.9 F 89 17 135/87 95 Medical Decision Making - RAD Interpretation Soap Maker: Radiologist - EKG Interpretation Interpreted by ED Physician: Yes Type: 12 lead EKG <Rolan Guillory - Last Filed: 01/28/18 19:22> <Danielito Mast - Last Filed: 01/28/18 23:54> ED Course and Treatment: 01/28/18 16:49 -CT head/lt. knee xray -POC Finger stick -Observe and reassess 01/28/18 21:00 -FS 96 -EKG: NSR @ 89 BPM, no ST elevation or depression, no T wave inversion. -Lt. knee xray: no fracture or dislocation -CT head: Normal CT of the Head. No intracranial hemorrhage. -Food and drinks given to the patient. -Pt. is sleeping comfortably, case endorsed to the incoming ER attending Dr. Mast for keeping until sober and re-evaluation for dispo (Rolan Guillory) - Lab Interpretations Lab Results: Lab Results 01/28/18 16:52: POC Glucose (mg/dL) 96 - RAD Interpretation Radiology Orders: 01/28/18 16:45 HEAD W/O CONTRAST [CT] Stat KNEE WITH PATELLA LEFT 3 VIEW [RAD] Stat Lt. knee xray: CT Head: HEMORRHAGE: No intracranial hemorrhage. BRAIN: No mass effect or edema. No atrophy or chronic microvascular ischemic changes. VENTRICLES: Unremarkable. No hydrocephalus. CALVARIUM: Unremarkable. PARANASAL SINUSES: Unremarkable as visualized. No significant inflammatory changes. MASTOID AIR CELLS: Unremarkable as visualized. No inflammatory changes. OTHER FINDINGS: None. IMPRESSION: Normal CT of the Head. No intracranial hemorrhage. (Rolan Guillory) - EKG Interpretation EKG Interpretation (Text): 01/28/18 17:24 -EKG: NSR @ 89 BPM, no ST elevation or depression, no T wave inversion. (Rolan Guillory) - PA / QUALITY CLOTH TESTER / Resident Statement ZULEMA has reviewed & agrees with the documentation as recorded. <Rolan Guillory - Last Filed: 01/28/18 19:22> - PA / QUALITY CLOTH TESTER / Resident Statement ZULEMA has reviewed & agrees with the documentation as recorded. ZULEMA has examined the patient and agrees with the treatment plan. <Danielito Mast - Last Filed: 01/28/18 23:54> Disposition/Present on Arrival - Present on Arrival Any Indicators Present on Arrival: No History of DVT/PE: No History of Uncontrolled Diabetes: No Urinary Catheter: No History of Decub. Ulcer: No History Surgical Site Infection Following: None - Disposition Have Diagnosis and Disposition been Completed?: Yes Disposition Time: 16:49 <Rolan Guillory - Last Filed: 01/28/18 19:22> - Present on Arrival Any Indicators Present on Arrival: No - Disposition Have Diagnosis and Disposition been Completed?: Yes Disposition Time: 23:53 Patient Plan: Discharge <Danielito Mast - Last Filed: 01/28/18 23:54> - Disposition Diagnosis: Alcohol intoxication Disposition: HOME/ ROUTINE Patient Problems: Current Active Problems Problem Status Onset Alcohol intoxication Acute Condition: STABLE Discharge Instructions (ExitCare): Alcohol Abuse and Alcoholism (DC) Referrals: Alcoholics Anonymous [Outside] - Follow up with primary Forms: [employer] (Yakut)
--- NOTE | 2018-01-28 18:49 | CT ---
PROCEDURE: CT HEAD WITHOUT CONTRAST. HISTORY: etoh fall COMPARISON: None available. TECHNIQUE: Axial computed tomography images were obtained through the head/brain without intravenous contrast. Radiation dose: Total exam DLP = 950.94 mGy-cm. This CT exam was performed using one or more of the following dose reduction techniques: Automated exposure control, adjustment of the mA and/or kV according to patient size, and/or use of iterative reconstruction technique. FINDINGS: HEMORRHAGE: No intracranial hemorrhage. BRAIN: No mass effect or edema. No atrophy or chronic microvascular ischemic changes. VENTRICLES: Unremarkable. No hydrocephalus. CALVARIUM: Unremarkable. PARANASAL SINUSES: Unremarkable as visualized. No significant inflammatory changes. MASTOID AIR CELLS: Unremarkable as visualized. No inflammatory changes. OTHER FINDINGS: None. IMPRESSION: Normal CT of the Head. No intracranial hemorrhage.
[2018-01-29 00:16] VITALS: BP 107/65; PULSE 85; RESP 18; TEMP 98.2; O2SAT 98
--- NOTE | 2018-01-29 09:42 | CARD ---
APPROVED REPORT EKG Measurement Heart [id number] <Conclusion> Normal sinus rhythm PRWP V 1 - 4 No change
--- NOTE | 2018-01-29 09:54 | RAD ---
PROCEDURE: Left Knee Radiographs. HISTORY: Pain. COMPARISON: None. FINDINGS: BONES: Normal. No fracture. JOINTS: Normal. No osteoarthritis. JOINT EFFUSION: None. OTHER FINDINGS: None. IMPRESSION: Normal radiographs of the left knee.
== END 2018-01-29 00:16 | disposition home or self-care (01) ==
LOC: ED 16:15
DX: F10.129 Alcohol abuse with intoxication, unspecified (principal); F17.200 Nicotine dependence, unspecified, uncomplicated

== ENCOUNTER 2018-03-18 12:39 | Emergency (ER) | payer OTHER ==
[2018-03-18 12:39] VITALS: BMI 32.9
--- NOTE | 2018-03-18 13:03 | ED PDOC ---
Arrival/HPI - General Chief Complaint: Alcohol Ingestion Time Seen by Provider: 03/18/18 12:59 Historian: Patient, EMS - History of Present Illness Narrative History of Present Illness (Text): 03/18/18 12:59 pt p/w + alcohol intoxication, last drink was at 9am today; pt states he also felt some right sided chest pain; ? fall, pain started ~ 3 hours ago; pt states no fever/chills/sweats, no shortness of breath, no abd pain, no n/v, no numbness /tingling, no urinary/bowel changes; pt denied SI/HI, pt denied hallucinations; pt states he is homeless and was sleeping on the streets today; pt did not remember any trauma recently pt is here for further eval pt's without other complaints PCP: none Time/Duration: Prior to Arrival Symptom Onset: Sudden Symptom Course: Unchanged Quality: Cramping Severity Level: Severe Activities at Onset: Rest Context: Home Past Medical History - Provider Review Nursing Documentation Reviewed: Yes - Travel History Have you recently traveled outside [place] w/in the past 3 mons?: No - Past History Past History: No Previous - Infectious Disease Hx of Infectious Diseases: None - Tetanus Immunization Tetanus Immunization: Unknown - Reproductive Currently Lactating: No - Past Medical History Past Medical History: No Previous - Cardiac Hx Cardiac Disorders: No - Pulmonary Hx Tuberculosis: No - Neurological Hx Neurological Disorder: No HX Cerebrovascular Accident: No Hx Seizures: No (Denies withdrawl seizures) - HEENT Hx HEENT Disorder: No - Renal Hx Renal Disorder: No - Endocrine/Metabolic Hx Endocrine Disorders: No - Hematological/Oncological Hx Blood Disorders: No - Integumentary Hx Dermatological Disorder: Yes - Musculoskeletal/Rheumatological Hx Falls: No - Gastrointestinal Hx Gastrointestinal Disorders: No - Genitourinary/Gynecological Hx Sexually Transmitted Diseases: No - Psychiatric Hx Depression: No Hx Emotional Abuse: No Hx Physical Abuse: No Hx Substance Use: No - Surgical History Hx Appendectomy: Yes - Anesthesia Hx Anesthesia: Yes Hx Anesthesia Reactions: No Hx Malignant Hyperthermia: No - Suicidal Assessment Feels Threatened In Home Enviroment: No Family/Social History - Physician Review Nursing Documentation Reviewed: Yes Family/Social History: No Known Family HX Smoking Status: Current Some Days Smoker Hx Alcohol Use: Yes Amount per day: 12 Hx Substance Use: No Hx Substance Use Treatment: No Allergies/Home Meds Allergies/Adverse Reactions: Allergies No Known Allergies Allergy (Verified 11/27/17 16:20) Review of Systems - Review of Systems Constitutional: Normal Eyes: Normal ENT: Normal Respiratory: Normal Cardiovascular: Chest Pain Gastrointestinal: Normal Genitourinary Male: Normal Musculoskeletal: Normal Skin: Normal Neurological: Normal Endocrine: Normal Hemo/Lymphatic: Normal Psychiatric: Normal. absent: Anxiety, Depression, Suicidal Ideation Physical Exam - Physical Exam Narrative Physical Exam (Text): 03/18/18 13:06 General: alert/awake, GCS = 15, oriented x 2 (not to date/time), resting in bed , uncomfortable, cooperative, interactive; NAD; + unkempt; + etoh on breath Head: NC/AT EYE: PERRLA, EOMI, sclera anicteric, no nystagmus, no photophobia; visual field intact b/l Facial: WNL Oral: uvula/tongue are midline, no exudate/lesions, no drooling/stridor, no dysphonia; fair dentitions, dry oral mucosa NECK: intact ROM, no midline tenderness, no nuchal rigidity, no meningeal signs ; no step off Chest: CTA b/l, no w/r/r; no tachypenia, no accessory muscle use noted Chest wall: + right mid/lateral chest wall region tenderness, no crepitus; + posterior right chest wall tenderness as well; no gross deformities noted, no rashes noted Cardiac: +S1, +S2, no m/r/r, no tachycardia Abdominal: +BS, soft/nd/nt, well nourished patient; no masses/rebound/guarding/ rigidity; no ramirez's sign, no mcburney's point tenderness Extremities: intact ROM, strength 5/5 grossly intact in all limbs, neurovasc intact b/l; + ambulatory; reflex +2/2 BACK: no step off, no midline tenderness, NO crepitus, no gross deformities noted; Intact ROM SKIN: cap refill < 1 sec, no ulcerations, no petechiae, no rashes NEURO: CNII-XII WNL, no facial asymmetries, no slurr speech, oriented x 2 (not to date/time) NIH stroke scale ~ 0 Psych: normal insight, normal affect; follows command with ease Vital Signs Reviewed: Yes Vital Signs Temp Pulse Resp BP Pulse Ox 03/18/18 17:00 85 20 130/78 99 03/18/18 13:07 98.8 F 88 18 130/88 100 Temperature: Afebrile Blood Pressure: Normal Pulse: Regular Respiratory Rate: Normal Appearance: Positive for: Well-Appearing, Non-Toxic, Uncomfortable Pain Distress: None Mental Status: Positive for: other (alert/awake, oriented x 2 (not to date/time) ). No: Confused, Agitated, Lethargic Medical Decision Making ED Course and Treatment: 03/18/18 13:03 Impression: right chest pain, atypical; + etoh i have consider all the differential diagnosis regarding pt's chief medical complaints/clinical findings, including but are not limited to: right chest pain , + etoh A/P: right chest pain, atypical; + etoh - labs - xray - supportive care - observe/reevaluation 03/18/18 14:30 pt is resting in bed, comfortable, NAD pt is awaiting soberity 1630 pt is now awake, and is seen pacing in his room pt tolerated po well pt is awaiting soberity 1755 i was notified by nursing staff that patient had eloped and left his room; unable to find patient; pt left the emergency department prior to completion of pt's medical evaluation Re-evaluation Time: 15:14 Reassessment Condition: Unchanged - Lab Interpretations Lab Results: 03/18/18 14:27 03/18/18 14:27 Lab Results 03/18/18 14:27: Alcohol, Quantitative 401 H* 03/18/18 14:27: Sodium 145, Potassium 3.8, Chloride 101, Carbon Dioxide 28, Anion Gap 20, BUN 3 L, Creatinine 0.5 L, Est GFR ( Amer) > 60, Est GFR ( Non-Af Amer) > 60, Random Glucose 117 H, Calcium 8.4 03/18/18 14:27: WBC 4.7, RBC 3.57, Hgb 12.3 L, Hct 35.1 L, MCV 98.3, MCH 34.5, MCHC 35.0, RDW 13.7, Plt Count 90 L, MPV 9.7, Gran % 63.6, Lymph % (Auto) 27.7, [place] % (Auto) 6.7 H, Eos % (Auto) 0.9 L, Baso % (Auto) 1.1, Gran # 2.96, Lymph # (Auto) 1.3, [place] # (Auto) 0.3, Eos # (Auto) 0.0, Baso # (Auto) 0.05 I have reviewed the lab results: Yes Interpretation: Abnormal lab values (elevated alcohol level) - RAD Interpretation Narrative RAD Interpretations (Text): 03/18/18 15:14 PROCEDURE: Radiographs of the Chest and Right Ribs. HISTORY: right chest pain, EOTH, no trauma? COMPARISON: None available. TECHNIQUE: Frontal radiograph of the chest and multiple oblique radiographs of the right ribs were obtained. FINDINGS: RIGHT RIBS: No fracture or focal lesion visualized. LUNGS: Clear. PLEURA: No pneumothorax or pleural fluid. CARDIOVASCULAR: Normal sized heart. No pulmonary vascular congestion. OTHER FINDINGS: None. IMPRESSION: Unremarkable radiographs of the chest and right ribs. No right rib fracture. Radiology Orders: 03/18/18 13:02 RIBS RIGHT & PA CHEST [RAD] Stat Human Resources Operations Coordinator: Radiologist - EKG Interpretation EKG Interpretation (Text): 03/18/18 13:04 NSR at 90 bpm, normal axis, no ectopy, qs in leads III, diffuse low voltage inferior leads, no st-t changes, NORMAL EKG; unchanged compare with old ekg 2017 Interpreted by ED Physician: Yes Type: 12 lead EKG Comparison: Similar to previous EKG - Medication Orders Current Medication Orders: Discontinued Medications Ketorolac Tromethamine (Toradol) 30 mg IM STAT STA Stop: 03/18/18 13:04 Last Admin: 03/18/18 15:28 Dose: 30 mg MAR Pain Assessment Document 03/18/18 15:28 [facility] (Rec: 03/18/18 15:28 [facility] [id number]) Pain Reassessment Is this a pain reassessment? No Sleep Is patient sleeping during reassessment? No Presence of Pain Presence of Pain Yes Pain Scale Used Pain Scale Used Numeric Location Left, Right or Bilateral Bilateral Pain Location Body Site Chest Description Description Constant Intensity of Pain at present 7 Pain Behavior Facial Grimacing Aggravating Factors Changing Position Alleviating Factors/Management Position Change Techniques Alleviating Factors Medication IM Administration Charges Document 03/18/18 15:28 [email or web address] (Rec: 03/18/18 15:28 [facility] [id number]) Charges for Administration # of IM Administrations 1 Disposition/Present on Arrival - Present on Arrival Any Indicators Present on Arrival: No History of DVT/PE: No History of Uncontrolled Diabetes: No Urinary Catheter: No History of Decub. Ulcer: No History Surgical Site Infection Following: None - Disposition Have Diagnosis and Disposition been Completed?: Yes Diagnosis: Alcohol intoxication, Alcohol abuse, Atypical chest pain Disposition: ELOPEMENT - ER ONLY Disposition Time: 18:00 Patient Problems: Current Active Problems Problem Status Onset Alcohol intoxication Acute Atypical chest pain Acute Alcohol abuse Acute Condition: STABLE Discharge Instructions (ExitCare): Chest Pain (ED) Print Language: [place] Additional Instructions: Make sure to see your doctor in 1-2 days DRINK PLENTY OF FLUIDS DONT DRINK ALCOHOL DONT SMOKE take your medications as prescribed RETURN TO ED IF worse pain, cant breath, persistent vomiting, high fever >101- 102 for hours, altered behavior, slurr speech, facial changes, focal weakness ( arm/leg or both), unable to urinate, heavy/persistent bleeding, passing out, chest pain, or other medical emergencies Referrals: [facility] [Outside] - Follow up with [facility] [Outside] - Follow up with primary [facility] [Outside] - Follow up with primary [facility] [place] [Outside] - Follow up with primary Forms: [employer] ([place])
[2018-03-18 13:08] VITALS: TEMP 98.8
--- NOTE | 2018-03-18 14:29 | RAD ---
PROCEDURE: Radiographs of the Chest and Right Ribs. HISTORY: right chest pain, EOTH, no trauma? COMPARISON: None available. TECHNIQUE: Frontal radiograph of the chest and multiple oblique radiographs of the right ribs were obtained. FINDINGS: RIGHT RIBS: No fracture or focal lesion visualized. LUNGS: Clear. PLEURA: No pneumothorax or pleural fluid. CARDIOVASCULAR: Normal sized heart. No pulmonary vascular congestion. OTHER FINDINGS: None. IMPRESSION: Unremarkable radiographs of the chest and right ribs. No right rib fracture.
[2018-03-18 14:31] LABS: BASO # 0.05 K/mm3 (0.0-2.0); BASO % 1.1 % (0.0-3.0); EOS % 0.9 % (1.5-5.0); GRAN # 2.96 (1.4-6.5); GRAN % 63.6 % (50.0-68.0); HEMOGLOBIN 12.3 g/dL (14.0-18.0); LYMPH # 1.3 (1.2-3.4); LYMPH % 27.7 % (22.0-35.0); MEAN CELL VOLUME 98.3 fl (80.0-105.0); MEAN CORPUSCULAR HEMOGLOBIN 34.5 pg (25.0-35.0); MEAN PLATELET VOLUME 9.7 fl (7.0-11.0); MONO # 0.3 (0.1-0.6); MONO % 6.7 % (1.0-6.0); RBC 3.57 10^6/uL (3.5-6.1); RED CELL DISTRIBUTION WIDTH 13.7 % (11.5-14.5); WHITE BLOOD COUNT 4.7 10^3/ul (4.5-11.0)
[2018-03-18 14:41] LABS: BLOOD UREA NITROGEN 3 mg/dL (7-21); CALCIUM 8.4 mg/dL (8.4-10.5); GFR AFRICAN-AMERICAN > 60; GFR NON-AFRICAN AMERICAN > 60
[2018-03-18 17:10] VITALS: BP 130/78; PULSE 85; RESP 20; O2SAT 99
--- NOTE | 2018-03-18 18:52 | CARD ---
APPROVED REPORT EKG Measurement Heart [id number] [id number] <Conclusion> Normal sinus rhythm Normal ECG
== END 2018-03-18 17:58 | disposition left against medical advice (07) ==
LOC: ED 12:39
DX: F10.129 Alcohol abuse with intoxication, unspecified (principal); R07.89 Other chest pain; Y90.8 Blood alcohol level of 240 mg/100 ml or more
CPT/HCPCS: 71101; 80048; 80320; 85025; 93005; 96372; 99283; J1885

== ENCOUNTER 2018-03-24 14:38 | Emergency (ER) | payer OTHER ==
[2018-03-24 15:00] VITALS: TEMP 98.7
[2018-03-24 16:00] VITALS: BMI 27.4
--- NOTE | 2018-03-24 16:31 | ED PDOC ---
"Arrival/HPI - General Historian: Patient, EMS - History of Present Illness Time/Duration: Prior to Arrival <Ann Mendoza - Last Filed: 03/25/18 01:40> <Danielito Mast - Last Filed: 03/25/18 01:44> - General Chief Complaint: Alcohol Ingestion Time Seen by Provider: 03/24/18 15:42 - History of Present Illness Narrative History of Present Illness (Text): 03/24/18 16:28 47-year-old male with a history of alcohol abuse presents today brought in by ambulance for alcohol intoxication. Patient denies any complaints in the emergency room. Admits to drinking alcohol today. Denies any recollection of trauma or injury. (Ann Mendoza) Past Medical History - Provider Review Nursing Documentation Reviewed: Yes - Travel History Have you recently traveled outside [place] w/in the past 3 mons?: No - Past History Past History: No Previous - Infectious Disease Hx of Infectious Diseases: None - Tetanus Immunization Tetanus Immunization: Unknown - Reproductive Currently Lactating: No - Past Medical History Past Medical History: No Previous - Cardiac Hx Cardiac Disorders: No - Pulmonary Hx Tuberculosis: No - Neurological Hx Neurological Disorder: No HX Cerebrovascular Accident: No Hx Seizures: No (Denies withdrawl seizures) - HEENT Hx HEENT Disorder: No - Renal Hx Renal Disorder: No - Endocrine/Metabolic Hx Endocrine Disorders: No - Hematological/Oncological Hx Blood Disorders: No - Integumentary Hx Dermatological Disorder: Yes - Musculoskeletal/Rheumatological Hx Falls: No - Gastrointestinal Hx Gastrointestinal Disorders: No - Genitourinary/Gynecological Hx Sexually Transmitted Diseases: No - Psychiatric Hx Depression: No Hx Emotional Abuse: No Hx Physical Abuse: No Hx Substance Use: No Other/Comment: ETOH - Surgical History Hx Appendectomy: Yes - Anesthesia Hx Anesthesia: Yes Hx Anesthesia Reactions: No Hx Malignant Hyperthermia: No - Suicidal Assessment Feels Threatened In Home Enviroment: No <Ann Mendoza - Last Filed: 03/25/18 01:40> Family/Social History - Physician Review Nursing Documentation Reviewed: Yes Family/Social History: Unknown Family HX Smoking Status: Current Some Days Smoker Hx Alcohol Use: Yes Frequency of alcohol use: Socially Amount per day: 12 Hx Substance Use: No Hx Substance Use Treatment: No <Ann Mendoza - Last Filed: 03/25/18 01:40> Allergies/Home Meds <Ann Mendoza Faina - Last Filed: 03/25/18 01:40> <Danielito Mast - Last Filed: 03/25/18 01:44> Allergies/Adverse Reactions: Allergies No Known Allergies Allergy (Verified 11/27/17 16:20) Home Medications: Home Meds Medication Instructions Recorded Confirmed Unobtainable 03/24/18 03/24/18 Review of Systems - Review of Systems Systems not reviewed;Unavailable: Intoxicated Respiratory: absent: SOB, Cough Cardiovascular: absent: Chest Pain, Palpitations Gastrointestinal: absent: Abdominal Pain, Nausea, Vomiting Genitourinary Male: absent: Dysuria Musculoskeletal: absent: Arthralgias Skin: absent: Rash, Pruritis Psychiatric: absent: Anxiety, Depression <Jeremy Mendozalorie Eisenberg - Last Filed: 03/25/18 01:40> Physical Exam Vital Signs Reviewed: Yes Temperature: Afebrile Blood Pressure: Normal Pulse: Regular Respiratory Rate: Normal Appearance: Positive for: Well-Appearing, Non-Toxic, Comfortable, Unkept Pain Distress: None Mental Status: Positive for: other (intoxicated) - Systems Exam Head: Present: Atraumatic Pupils: Present: PERRL Extroacular Muscles: Present: EOMI Conjunctiva: Present: Injected Ears: Present: Normal, NORMAL TM Mouth: Present: Moist Mucous Membranes, Normal Lips, Normal Tounge. No: Drooling, Trismus Pharnyx: No: ERYTHEMA, EXUDATE, TONSILS ENLARGED, Peritonsilar Swelling, Uvular Deviation, Muffled/Hoarse Voice, Strider Nose (External): Present: Atraumatic Nose (Internal): Present: Normal Inspection Neck: Present: Normal Range of Motion, Trachea Midline. No: MIDLINE TENDERNESS , Paraspinal Tenderness Respiratory/Chest: Present: Clear to Auscultation, Good Air Exchange, Tender to Palpation (+ ttp over right sided of chest wall, + ecchymosis noted to lateral chest wall on right side. no step offs. ). No: Respiratory Distress, Accessory Muscle Use, Wheezes Cardiovascular: Present: Regular Rate and Rhythm Abdomen: Present: Other (+ ecchymosis noted over anterior abdomen). No: Tenderness, Distention, Rebound, Guarding Back: Present: Normal Inspection, Paraspinal Tenderness (right sided upper paraspinal tenderness). No: Midline Tenderness Upper Extremity: Present: Normal ROM, Tenderness (+ ttp over anterior right shoulder; full rom ; no step offs or crepitus. sensation and distal pulses intact; ) Lower Extremity: Present: Normal ROM Skin: Present: Warm, Dry Psychiatric: Present: Alert, Intoxicated <Ann Mendoza - Last Filed: 03/25/18 01:40> Vital Signs Temp Pulse Resp BP Pulse Ox 03/24/18 14:59 98.7 F 75 18 118/78 100 Medical Decision Making Reassessment Condition: Re-examined, Improved <Ann Mendoza - Last Filed: 03/25/18 01:40> <Danielito Mast - Last Filed: 03/25/18 01:44> ED Course and Treatment: 03/24/18 16:34 47yr old male BIBA for intoxication. pt found to have bruising to right lateral chest wall and upper abdomen and tenderness over right side of chest and right shoulder. cbc wnl cmp: wnl ast; 152 alk phos; 272 ekg; normal sinus rhythm at 79 bpm normal axis normal intervals no ST elevations etoh; 438 UA: wnl ct head: FINDINGS: Brain: No hemorrhage. No significant white matter disease. No edema. Ventricles: No hydrocephalus. Bones: Skull is intact. Soft tissues: Stranding left parietal scalp, unchanged from prior study. Sinuses: Mild paranasal sinus mucosal thickening, most notable in the right maxillary sinus. No acute sinusitis. Mastoid air cells: No mastoid effusion. IMPRESSION: No CT evidence of acute intracranial abnormality. Details as above ct neck;FINDINGS: Vertebrae/discs/spinal canal/neural foramina: No acute fracture. Multilevel degenerative changes. Degenerative disc disease with disc osteophyte formation. Facet arthropathy. Associated impression on the central canal and neural foraminal narrowing. Further evaluation can be performed with MRI as warranted. No severe spinal canal stenosis. Soft tissues: Carotid calcification. Lung apices: Atelectasis. IMPRESSION: Negative for acute fracture. Please see additional details/findings as above. Some of the above findings may warrant followup evaluation ct chest/abd/pelvis: FINDINGS: CHEST: Lungs: Atelectasis. No mass. No consolidation. Pleural space: No significant effusion. No pneumothorax. Heart: No cardiomegaly. No significant pericardial effusion. ABDOMEN: Liver: Heterogeneous ehancement. Nodular contour. Hypertrophy of the uncinate process. Gallbladder and bile ducts: Cholelithiasis. Pancreas: No acute abnormality as visualized. Spleen: Mild splenomegaly. Adrenals: No acute abnormality as visualized. Kidneys and ureters: Nonspecific bilateral perinephric stranding. No hydronephrosis. Stomach and bowel: Limited evaluation without enteric contrast. No obstruction. SUSHILA RODGERS | Final Radiology Report CONFIDENTIALITY STATEMENT This report is intended only for use by the referring physician, and only in accordance with law. If you received this in error, call [phone]. Page 2 of 2 PELVIS: Appendix: Status post appendectomy. Bladder: No acute abnormality as visualized. Reproductive: No acute abnormality as visualized. CHEST, ABDOMEN and PELVIS: Intraperitoneal space: Prominence of mesenteric markings. Trace free fluid. No significant fluid collection. Bones/joints: Bilateral L4 pars defect. Grade 1 anterolisthesis of L4 on L5. Degenerative changes. No acute fracture. Soft tissues: Small fat-containing left inguinal hernia. Vasculature: No acute abnormality as visualized. No aortic aneurysm. Lymph nodes: Shotty nodes. IMPRESSION: Correlate clinically for cirrhosis. Liver demonstrates heterogeneous enhancement , nodular contour and hypertrophy of the uncinate process. Cannot exclude underlying lesion as visualized. Mild splenomegaly. Cholelithiasis. Nonspecific bilateral perinephric stranding. Prominence of mesenteric markings. Trace free fluid. No definitive acute visceral injury visualized. Degenerative changes as above. Additional details/findings as above. Correlate clinically. Followup as warranted. 03/25/18 01:22 Patient has been observed in the emergency room: Patient is currently alert and oriented. speaking in nauruan in full sentences. ambulating with a steady gait. Patient is clinically sober. no distress. I discussed in depth the CAT scan results with the patient. Advised the patient of liver cirrhosis due to drinking alcohol frequently. I've advised him that we cannot say that there is not an underlying liver mass. Patient was advised to follow-up with the medical clinic for further evaluation. I've advised the patient to return to the emergency room if symptoms worsen persist or if new concerning symptoms develop Patient verbalizes understanding of discharge instructions and need for immediate followup. all aspects of this case were discussed the attending of record. Impression: Alcohol use, contusion of chest wall, right shoulder pain, liver cirrhosis, rule out liver mass Increase fluids follow-up the primary care physician/medical clinic within the next 2 days Return immediately if symptoms worsen persist or if new concerning symptoms develop (Ann Mendoza) - Lab Interpretations Lab Results: 03/24/18 17:30 03/24/18 17:30 Lab Results 03/24/18 20:25: Urine Color Yellow, Urine Appearance Clear, Urine pH 6.0, Ur Specific Newton <= 1.005, Urine Protein Negative, Urine Glucose (UA) Negative, Urine Ketones Negative, Urine Blood Negative, Urine Nitrate Negative, Urine Bilirubin Negative, Urine Urobilinogen 0.2, Ur Leukocyte Esterase Negative 03/24/18 17:30: WBC 3.3 L D, RBC 3.46 L, Hgb 11.8 L, Hct 34.0 L, MCV 98.3, MCH 34.1, MCHC 34.7, RDW 14.1, Plt Count 55 L, MPV 10.6, Gran % 56.2, Lymph % (Auto ) 35.6 H, Tyler % (Auto) 6.1 H, Eos % (Auto) 0.9 L, Baso % (Auto) 1.2, Gran # 1.85, Lymph # (Auto) 1.2, Tyler # (Auto) 0.2, Eos # (Auto) 0.0, Baso # (Auto) 0.04 03/24/18 17:30: Alcohol, Quantitative 438 H* 03/24/18 17:30: Sodium 146, Potassium 4.0, Chloride 104, Carbon Dioxide 26, Anion Gap 20, BUN 4 L, Creatinine 0.5 L, Est GFR ( Amer) > 60, Est GFR ( Non-Af Amer) > 60, Random Glucose 97, Calcium 8.5, Total Bilirubin 0.6, AST 152 H, ALT 35, Alkaline Phosphatase 276 H, Total Protein 8.6 H, Albumin 4.1, Globulin 4.5, Albumin/Globulin Ratio 0.9 L, Lipase 80 03/24/18 17:30: PT 14.1 H, INR 1.23 H, APTT 38.6 H - RAD Interpretation Radiology Orders: 03/24/18 16:11 CERVICAL SPINE W/O CONTRAST [CT] Stat CHEST,ABD,PEL W/IV CONT ONLY [CT] Stat HEAD W/O CONTRAST [CT] Stat 03/24/18 16:16 CHEST ONE VIEW [RAD] Stat 03/24/18 16:33 SHOULDER RIGHT [RAD] Stat - PA / SHEAR HELPER / Resident Statement MD/DO has reviewed & agrees with the documentation as recorded. <Danielito Mast - Last Filed: 03/25/18 01:44> Disposition/Present on Arrival - Present on Arrival Any Indicators Present on Arrival: No History of DVT/PE: No History of Uncontrolled Diabetes: No Urinary Catheter: No History of Decub. Ulcer: No History Surgical Site Infection Following: None - Disposition Have Diagnosis and Disposition been Completed?: Yes Disposition Time: :29 Patient Plan: Discharge <Ann Mendoza - Last Filed: 03/25/18 01:40> <Danielito Mast - Last Filed: 03/25/18 01:44> - Disposition Diagnosis: Alcohol abuse, Liver mass, Gallstones, Cirrhosis of liver, Shoulder pain, Contusion of chest wall Disposition: HOME/ ROUTINE Patient Problems: Current Active Problems Problem Status Onset Alcohol abuse Acute Cirrhosis of liver Acute Contusion of chest wall Acute Gallstones Acute Liver mass Acute Shoulder pain Acute Condition: GOOD Discharge Instructions (ExitCare): Cirrhosis (DC), Gallstones (DC), Alcohol Abuse and Alcoholism (DC), Effects of Alcohol on Your Health Additional Instructions: Increase fluids follow-up the primary care physician/medical clinic within the next 2 days Return immediately if symptoms worsen persist or if new concerning symptoms develop Referrals: [facility] at [facility] [place] [Outside] - Follow up with primary Robert Rivera MD [Staff Provider] - Follow up with primary Forms: [employer] ([place])"
[2018-03-24 17:50] LABS: BASO # 0.04 K/mm3 (0.0-2.0); BASO % 1.2 % (0.0-3.0); EOS % 0.9 % (1.5-5.0); GRAN # 1.85 (1.4-6.5); GRAN % 56.2 % (50.0-68.0); HEMOGLOBIN 11.8 g/dL (14.0-18.0); LYMPH # 1.2 (1.2-3.4); LYMPH % 35.6 % (22.0-35.0); MEAN CELL VOLUME 98.3 fl (80.0-105.0); MEAN CORPUSCULAR HEMOGLOBIN 34.1 pg (25.0-35.0); MEAN CORPUSCULAR HGB CONC 34.7 g/dl (31.0-37.0); MEAN PLATELET VOLUME 10.6 fl (7.0-11.0); MONO # 0.2 (0.1-0.6); MONO % 6.1 % (1.0-6.0); RBC 3.46 10^6/uL (3.5-6.1); RED CELL DISTRIBUTION WIDTH 14.1 % (11.5-14.5); WHITE BLOOD COUNT 3.3 10^3/ul (4.5-11.0)
[2018-03-24 18:00] LABS: ALB/GLOB RATIO 0.9 (1.1-1.8); ALBUMIN 4.1 g/dL (3.0-4.8); ALT/SGPT 35 U/L (7-56); AST/SGOT 152 U/L (17-59); BLOOD UREA NITROGEN 4 mg/dL (7-21); CALCIUM 8.5 mg/dL (8.4-10.5); GFR AFRICAN-AMERICAN > 60; GFR NON-AFRICAN AMERICAN > 60; LIPASE 80 U/L (23-300)
[2018-03-24 18:08] LABS: INR 1.23 (0.93-1.08); PARTIAL THROMBOPLASTIN TIME 38.6 Seconds (25.1-36.5); PROTHROMBIN TIME 14.1 SECONDS (9.4-12.5)
[2018-03-24] MEDS ORDERED: Iohexol 350 MG/100 ML VIAL ONE (18:21)
--- NOTE | 2018-03-24 18:26 | CARD ---
APPROVED REPORT EKG Measurement Heart [id number] <Conclusion> Normal sinus rhythm PRWP NSSTW changes
--- NOTE | 2018-03-24 19:57 | CT ---
EXAM: CT Head Without Intravenous Contrast CLINICAL HISTORY: 47 years old, male; Screening exam; Additional info: Trauma TECHNIQUE: Axial computed tomography images of the head/brain without intravenous contrast. All CT scans at this facility use one or more dose reduction techniques, viz.: automated exposure control; ma/kV adjustment per patient size (including targeted exams where dose is matched to indication; i.e. head); or iterative reconstruction technique. Coronal and sagittal reformatted images were created and reviewed. COMPARISON: CT - HEAD W/O CONTRAST 2018-01-28 18:17 FINDINGS: Brain: No hemorrhage. No significant white matter disease. No edema. Ventricles: No hydrocephalus. Bones: Skull is intact. Soft tissues: Stranding left parietal scalp, unchanged from prior study. Sinuses: Mild paranasal sinus mucosal thickening, most notable in the right maxillary sinus. No acute sinusitis. Mastoid air cells: No mastoid effusion. IMPRESSION: No CT evidence of acute intracranial abnormality. Details as above.
--- NOTE | 2018-03-24 20:00 | CT ---
EXAM: CT Cervical Spine Without Intravenous Contrast CLINICAL HISTORY: 47 years old, male; Screening exam; ETOH; Additional info: Trauma TECHNIQUE: Axial computed tomography images of the cervical spine without intravenous contrast. All CT scans at this facility use one or more dose reduction techniques, viz.: automated exposure control; ma/kV adjustment per patient size (including targeted exams where dose is matched to indication; i.e. head); or iterative reconstruction technique. Coronal and sagittal reformatted images were created and reviewed. COMPARISON: No relevant prior studies available. FINDINGS: Vertebrae/discs/spinal canal/neural foramina: No acute fracture. Multilevel degenerative changes. Degenerative disc disease with disc osteophyte formation. Facet arthropathy. Associated impression on the central canal and neural foraminal narrowing. Further evaluation can be performed with MRI as warranted. No severe spinal canal stenosis. Soft tissues: Carotid calcification. Lung apices: Atelectasis. IMPRESSION: Negative for acute fracture. Please see additional details/findings as above. Some of the above findings may warrant followup evaluation.
--- NOTE | 2018-03-24 20:14 | CT ---
EXAM: CT Chest With Intravenous Contrast CT Abdomen and Pelvis With Intravenous Contrast CLINICAL HISTORY: 47 years old, male; Screening exam; Other: ETOH; Other screening; Prior surgery; Surgery type: Appendectomy; Additional info: Trauma TECHNIQUE: Axial computed tomography images of the chest, abdomen and pelvis with intravenous contrast. All CT scans at this facility use one or more dose reduction techniques, viz.: automated exposure control; ma/kV adjustment per patient size (including targeted exams where dose is matched to indication; i.e. head); or iterative reconstruction technique. Coronal and sagittal reformatted images were created and reviewed. CONTRAST: 94 mL of omni 350 administered intravenously. COMPARISON: No relevant prior studies available. FINDINGS: CHEST: Lungs: Atelectasis. No mass. No consolidation. Pleural space: No significant effusion. No pneumothorax. Heart: No cardiomegaly. No significant pericardial effusion. ABDOMEN: Liver: Heterogeneous ehancement. Nodular contour. Hypertrophy of the uncinate process. Gallbladder and bile ducts: Cholelithiasis. Pancreas: No acute abnormality as visualized. Spleen: Mild splenomegaly. Adrenals: No acute abnormality as visualized. Kidneys and ureters: Nonspecific bilateral perinephric stranding. No hydronephrosis. Stomach and bowel: Limited evaluation without enteric contrast. No obstruction. PELVIS: Appendix: Status post appendectomy. Bladder: No acute abnormality as visualized. Reproductive: No acute abnormality as visualized. CHEST, ABDOMEN and PELVIS: Intraperitoneal space: Prominence of mesenteric markings. Trace free fluid. No significant fluid collection. Bones/joints: Bilateral L4 pars defect. Grade 1 anterolisthesis of L4 on L5. Degenerative changes. No acute fracture. Soft tissues: Small fat-containing left inguinal hernia. Vasculature: No acute abnormality as visualized. No aortic aneurysm. Lymph nodes: Shotty nodes. IMPRESSION: Correlate clinically for cirrhosis. Liver demonstrates heterogeneous enhancement, nodular contour and hypertrophy of the uncinate process. Cannot exclude underlying lesion as visualized. Mild splenomegaly. Cholelithiasis. Nonspecific bilateral perinephric stranding. Prominence of mesenteric markings. Trace free fluid. No definitive acute visceral injury visualized. Degenerative changes as above. Additional details/findings as above. Correlate clinically. Followup as warranted.
[2018-03-24 20:40] LABS: URINE BILIRUBIN NEGATIVE (NEGATIVE); URINE BLOOD NEGATIVE (NEGATIVE); URINE GLUCOSE (UA) NEGATIVE (NEGATIVE); URINE LEUKOCYTE ESTERASE NEGATIVE Leu/uL (NEGATIVE); URINE PROTEIN NEGATIVE mg/dL (<30 mg/dL); URINE UROBILINOGEN 0.2 E.U./dL (<1 E.U./dL)
[2018-03-24 20:43] LABS: URINE APPEARANCE CLEAR (CLEAR); URINE COLOR YELLOW (YELLOW)
[2018-03-25 01:57] VITALS: RESP 16; O2SAT 98
[2018-03-25 01:59] VITALS: BP 123/79; PULSE 79
--- NOTE | 2018-03-25 10:31 | RAD ---
PROCEDURE: CHEST RADIOGRAPH, 1 VIEW HISTORY: trauma COMPARISON: 03/18/2018 FINDINGS: LUNGS: Clear. PLEURA: No pneumothorax or pleural fluid seen. CARDIOVASCULAR: Normal. OSSEOUS STRUCTURES: No significant abnormalities. VISUALIZED UPPER ABDOMEN: Normal. OTHER FINDINGS: None. IMPRESSION: No active disease.
--- NOTE | 2018-03-25 10:35 | RAD ---
PROCEDURE: Radiographs of the Right Shoulder HISTORY: shoulder pain COMPARISON: No prior. FINDINGS: BONES: Normal. No fracture. JOINTS: Normal. Glenohumeral and acromioclavicular joints preserved. No osteoarthritis. SOFT TISSUES: Normal. OTHER FINDINGS: None. IMPRESSION: Normal radiographs of the right shoulder.
== END 2018-03-25 01:55 | disposition home or self-care (01) ==
LOC: ED 14:38
DX: F10.129 Alcohol abuse with intoxication, unspecified (principal); K74.60 Unspecified cirrhosis of liver; K80.20 Calculus of gallbladder without cholecystitis without obstruction; M25.511 Pain in right shoulder; R16.0 Hepatomegaly, not elsewhere classified; S20.211A Contusion of right front wall of thorax, initial encounter; X58.XXXA Exposure to other specified factors, initial encounter
CPT/HCPCS: 70450; 71045; 71260; 72125; 73030; 74177; 80053; 80320; 81003; 83690; 85025; 85610; 85730; 93005; 99284; Q9967

== ENCOUNTER 2018-04-04 18:47 | Emergency (ER) | payer OTHER ==
[2018-04-04 18:51] VITALS: BMI 36.6
[2018-04-04 19:06] VITALS: TEMP 98.7
[2018-04-04 20:03] LABS: BASO # 0.04 K/mm3 (0.0-2.0); BASO % 1.1 % (0.0-3.0); EOS % 0.8 % (1.5-5.0); GRAN # 2.1 (1.4-6.5); GRAN % 56.9 % (50.0-68.0); HEMOGLOBIN 11.5 g/dL (14.0-18.0); LYMPH # 1.2 (1.2-3.4); LYMPH % 33.3 % (22.0-35.0); MEAN CELL VOLUME 98.2 fl (80.0-105.0); MEAN CORPUSCULAR HEMOGLOBIN 34.2 pg (25.0-35.0); MEAN CORPUSCULAR HGB CONC 34.8 g/dl (31.0-37.0); MEAN PLATELET VOLUME 9.6 fl (7.0-11.0); MONO # 0.3 (0.1-0.6); MONO % 7.9 % (1.0-6.0); RBC 3.36 10^6/uL (3.5-6.1); RED CELL DISTRIBUTION WIDTH 14.8 % (11.5-14.5); WHITE BLOOD COUNT 3.7 10^3/ul (4.5-11.0)
[2018-04-04 20:09] LABS: INR 1.31 (0.93-1.08); PARTIAL THROMBOPLASTIN TIME 36.2 Seconds (25.1-36.5)
--- NOTE | 2018-04-04 20:15 | ED PDOC ---
Arrival/HPI - General Historian: Patient <Ann Mendoza - Last Filed: 04/05/18 01:47> <Danielito Taylor - Last Filed: 04/05/18 06:51> - General Chief Complaint: Alcohol Ingestion Time Seen by Provider: 04/04/18 19:01 - History of Present Illness Narrative History of Present Illness (Text): 04/04/18 20:12 47-year-old male presents today brought in by ambulance for alcohol intoxication. Per EMS the patient was [place] in the park. Patient admits to drinking 6 beers today. Pt states he got hot so he went to lay down under the tree. Patient denies any trauma or injury. No chest pain or shortness of breath. Denies suicidal or homicidal ideation (Ann Mendoza) Past Medical History - Provider Review Nursing Documentation Reviewed: Yes - Travel History Have you recently traveled outside [place] w/in the past 3 mons?: No - Past History Past History: No Previous - Infectious Disease Hx of Infectious Diseases: None - Tetanus Immunization Tetanus Immunization: Unknown - Reproductive Currently Lactating: No - Past Medical History Past Medical History: No Previous - Cardiac Hx Cardiac Disorders: No - Pulmonary Hx Tuberculosis: No - Neurological Hx Neurological Disorder: No HX Cerebrovascular Accident: No Hx Seizures: No (Denies withdrawl seizures) - HEENT Hx HEENT Disorder: No - Renal Hx Renal Disorder: No - Endocrine/Metabolic Hx Endocrine Disorders: No - Hematological/Oncological Hx Blood Disorders: No - Integumentary Hx Dermatological Disorder: Yes - Musculoskeletal/Rheumatological Hx Falls: No - Gastrointestinal Hx Gastrointestinal Disorders: No - Genitourinary/Gynecological Hx Sexually Transmitted Diseases: No - Psychiatric Hx Depression: No Hx Emotional Abuse: No Hx Physical Abuse: No Hx Substance Use: No Other/Comment: ETOH - Surgical History Hx Appendectomy: Yes - Anesthesia Hx Anesthesia: Yes Hx Anesthesia Reactions: No Hx Malignant Hyperthermia: No - Suicidal Assessment Feels Threatened In Home Enviroment: No <Ann Mendoza - Last Filed: 04/05/18 01:47> Family/Social History - Physician Review Nursing Documentation Reviewed: Yes Family/Social History: Unknown Family HX Smoking Status: Current Some Days Smoker Hx Alcohol Use: Yes Amount per day: 12 Hx Substance Use: No Hx Substance Use Treatment: No <Ann Mendoza - Last Filed: 04/05/18 01:47> Allergies/Home Meds <YaseminbeanAnn T - Last Filed: 04/05/18 01:47> <Danielito Taylor - Last Filed: 04/05/18 06:51> Allergies/Adverse Reactions: Allergies No Known Allergies Allergy (Verified 11/27/17 16:20) Home Medications: Home Meds Medication Instructions Recorded Confirmed Unobtainable 03/24/18 04/04/18 Review of Systems - Review of Systems Respiratory: absent: SOB, Cough Cardiovascular: absent: Chest Pain, Palpitations Gastrointestinal: absent: Abdominal Pain, Nausea, Vomiting Genitourinary Male: absent: Dysuria Musculoskeletal: absent: Arthralgias, Back Pain, Neck Pain Neurological: absent: Headache, Dizziness Psychiatric: absent: Anxiety, Depression, Suicidal Ideation <Ann Mendoza - Last Filed: 04/05/18 01:47> Physical Exam Vital Signs Reviewed: Yes Temperature: Afebrile Blood Pressure: Normal Pulse: Regular Respiratory Rate: Normal Appearance: Positive for: Well-Appearing, Non-Toxic, Comfortable Pain Distress: None Mental Status: Positive for: other (alert) Finger Stick Blood Glucose: 83 - Systems Exam Head: Present: Atraumatic Mouth: Present: Moist Mucous Membranes Neck: Present: Normal Range of Motion Respiratory/Chest: Present: Clear to Auscultation, Good Air Exchange. No: Respiratory Distress, Accessory Muscle Use, Rales, Rhonchi, Tender to Palpation Cardiovascular: Present: Regular Rate and Rhythm Abdomen: No: Tenderness, Distention, Rebound, Guarding Back: Present: Normal Inspection Upper Extremity: Present: Normal ROM Lower Extremity: Present: Normal ROM Neurological: Present: GCS=15, Speech Normal Skin: Present: Warm, Dry, Normal Color. No: Rashes Psychiatric: Present: Alert, Oriented x 3 <Ann Mendoza - Last Filed: 04/05/18 01:47> Vital Signs Temp Pulse Resp BP Pulse Ox 04/05/18 06:39 80 18 128/74 98 04/05/18 06:00 80 18 130/73 97 04/05/18 04:33 82 18 132/72 96 04/05/18 04:31 82 16 132/72 95 04/05/18 01:33 98.7 F 83 20 102/60 98 04/04/18 23:52 98.7 F 69 20 87/50 L 97 04/04/18 19:03 98.7 F 78 20 110/58 L 96 Medical Decision Making <Ann Mendoza - Last Filed: 04/05/18 01:47> <Danielito Taylor - Last Filed: 04/05/18 06:51> ED Course and Treatment: 04/04/18 20:25 47yr old male presents with ETOH abuse brought in by ambulance for being found in the park. fingerstick;86 cbc; wbc; 3.7, hbg;11.5 cmp; wnl 04/04/18 22:29 pt reassessment; resting in er; no distress. alert. 04/05/18 01:32 pt reassessment; bp 102/60; alert; no distress; drinking water in er. resting comfortably. 04/05/18 01:47 case signed out to dr. taylor pending sobriety (Ann Mendoza) 04/05/18 06:15 Pt. awake,alert,sober,ready for discharge. (Danielito Taylor) - Lab Interpretations Lab Results: 04/04/18 19:50 04/04/18 19:50 Lab Results 04/04/18 19:50: WBC 3.7 L, RBC 3.36 L, Hgb 11.5 L, Hct 33.0 L, MCV 98.2, MCH 34.2, MCHC 34.8, RDW 14.8 H, Plt Count 66 L, MPV 9.6, Gran % 56.9, Lymph % (Auto ) 33.3, Smith % (Auto) 7.9 H, Eos % (Auto) 0.8 L, Baso % (Auto) 1.1, Gran # 2.10 , Lymph # (Auto) 1.2, Smith # (Auto) 0.3, Eos # (Auto) 0.0, Baso # (Auto) 0.04 04/04/18 19:50: Sodium 149 H, Potassium 3.6, Chloride 105, Carbon Dioxide 26, Anion Gap 22 H, BUN 3 L, Creatinine 0.5 L, Est GFR ( Amer) > 60, Est GFR (Non-Af Amer) > 60, Random Glucose 95, Calcium 8.6, Total Bilirubin 1.2, AST 176 H, ALT 39, Alkaline Phosphatase 256 H, Total Protein 8.9 H, Albumin 4.1, Globulin 4.8, Albumin/Globulin Ratio 0.8 L 04/04/18 19:50: PT 15.0 H, INR 1.31 H, APTT 36.2 - PA / ENGRAVER TIRE MOLD / Resident Statement / has reviewed & agrees with the documentation as recorded. / has examined the patient and agrees with the treatment plan. <Danielito Taylor - Last Filed: 04/05/18 06:51> Disposition/Present on Arrival - Present on Arrival Any Indicators Present on Arrival: No History of DVT/PE: No History of Uncontrolled Diabetes: No Urinary Catheter: No History of Decub. Ulcer: No History Surgical Site Infection Following: None <Ann Mendoza - Last Filed: 04/05/18 01:47> - Present on Arrival Any Indicators Present on Arrival: No - Disposition Have Diagnosis and Disposition been Completed?: Yes Disposition Time: 06:30 Patient Plan: Discharge <Danielito Taylor - Last Filed: 04/05/18 06:51> - Disposition Diagnosis: Alcohol abuse Disposition: HOME/ ROUTINE Condition: GOOD Discharge Instructions (ExitCare): Alcohol Abuse and Alcoholism (DC) Referrals: Alcoholics Anonymous [Outside] - Follow up with primary Forms: [employer] (Tongan)
[2018-04-04 20:24] LABS: ALB/GLOB RATIO 0.8 (1.1-1.8); ALBUMIN 4.1 g/dL (3.0-4.8); ALT/SGPT 39 U/L (7-56); AST/SGOT 176 U/L (17-59); BLOOD UREA NITROGEN 3 mg/dL (7-21); CALCIUM 8.6 mg/dL (8.4-10.5); GFR AFRICAN-AMERICAN > 60; GFR NON-AFRICAN AMERICAN > 60
[2018-04-05 04:33] VITALS: RESP 18
[2018-04-05 06:40] VITALS: BP 128/74; PULSE 80; O2SAT 98
== END 2018-04-05 06:40 | disposition home or self-care (01) ==
LOC: ED 18:47
DX: F10.10 Alcohol abuse, uncomplicated (principal)

== ENCOUNTER 2018-05-19 12:35 | Emergency (ER) | payer OTHER ==
[2018-05-19 12:36] VITALS: BMI 36.6
[2018-05-19 12:43] VITALS: BP 133/81
--- NOTE | 2018-05-19 13:17 | ED PDOC ---
Arrival/HPI - General Chief Complaint: Eye Problem Time Seen by Provider: 05/19/18 13:15 Historian: Patient - History of Present Illness Narrative History of Present Illness (Text): 05/19/18 13:16 47yo male with history of alcohol abuse who present with complaint of eyes irritation. States he thinks something went into his eyes while cutting a tree yesterday. He denies pain, states it just feel irritated. Denies photophobia, tearing, visual acuity change, any other complaint. Past Medical History - Provider Review Nursing Documentation Reviewed: Yes - Past History Past History: No Previous - Infectious Disease Hx of Infectious Diseases: None - Tetanus Immunization Tetanus Immunization: Unknown - Reproductive Currently Lactating: No - Past Medical History Past Medical History: No Previous - Cardiac Hx Cardiac Disorders: No - Pulmonary Hx Respiratory Disorders: No - Neurological Hx Neurological Disorder: No - HEENT Hx HEENT Disorder: No - Renal Hx Renal Disorder: No - Endocrine/Metabolic Hx Endocrine Disorders: No - Hematological/Oncological Hx Blood Disorders: No - Integumentary Hx Dermatological Disorder: Yes - Musculoskeletal/Rheumatological Hx Falls: No - Gastrointestinal Hx Gastrointestinal Disorders: No - Genitourinary/Gynecological Hx Genitourinary Disorders: No - Psychiatric Hx Physical Abuse: No Hx Substance Use: No Other/Comment: ETOH - Surgical History Hx Appendectomy: Yes - Anesthesia Hx Anesthesia: Yes Hx Anesthesia Reactions: No Hx Malignant Hyperthermia: No - Suicidal Assessment Feels Threatened In Home Enviroment: No Family/Social History - Physician Review Nursing Documentation Reviewed: Yes Family/Social History: Unknown Family HX Smoking Status: Current Some Days Smoker Hx Alcohol Use: Yes Amount per day: 12 Hx Substance Use: No Hx Substance Use Treatment: No Allergies/Home Meds Allergies/Adverse Reactions: Allergies No Known Allergies Allergy (Verified 05/19/18 12:38) Home Medications: Home Meds Medication Instructions Recorded Confirmed Unobtainable 03/24/18 05/19/18 Review of Systems - Physician Review All systems were reviewed & negative as marked: Yes - Review of Systems Constitutional: Normal Eyes: Other (B/L eyes irritation) ENT: Normal Respiratory: Normal Cardiovascular: Normal Gastrointestinal: Normal Genitourinary Male: Normal Musculoskeletal: Normal Skin: Normal Neurological: Normal Endocrine: Normal Hemo/Lymphatic: Normal Psychiatric: Normal Physical Exam Vital Signs Reviewed: Yes Vital Signs Temp Pulse Resp BP Pulse Ox 05/19/18 13:31 98.2 F 81 19 98 05/19/18 12:38 98.5 F 83 16 133/81 97 Temperature: Afebrile Blood Pressure: Normal Pulse: Regular Respiratory Rate: Normal Appearance: Positive for: Well-Appearing, Non-Toxic, Comfortable Pain Distress: None Mental Status: Positive for: Alert and Oriented X 3 - Systems Exam Head: Present: Atraumatic, Normocephalic Pupils: Present: PERRL Extroacular Muscles: Present: EOMI Conjunctiva: Present: Other (Blood shot redness on the nasal area of the right eye and on the medial/nasal/limbus area of the left ey) Mouth: Present: Moist Mucous Membranes Neck: Present: Normal Range of Motion Respiratory/Chest: Present: Clear to Auscultation, Good Air Exchange. No: Respiratory Distress, Accessory Muscle Use Cardiovascular: Present: Regular Rate and Rhythm, Normal S1, S2. No: Murmurs Abdomen: No: Tenderness, Distention, Peritoneal Signs Back: Present: Normal Inspection Upper Extremity: Present: Normal Inspection. No: Cyanosis, Edema Lower Extremity: Present: Normal Inspection. No: Edema Neurological: Present: GCS=15, CN II-XII Intact, Speech Normal Skin: Present: Warm, Dry, Normal Color. No: Rashes Psychiatric: Present: Alert, Oriented x 3, Normal Insight, Normal Concentration Medical Decision Making ED Course and Treatment: 05/19/18 20:00 PT presented to EDfor stated history. He have subconjunctival hemorrhage. He denied visual acuity changes in Emergency department. Visual acuity test R - 30 L - 30 Both 20/30. PT was reassured and was referred to the crew person wildlife biostation research ecologist. Alessandra translated and patient was given the opportunity to ask question. Disposition/Present on Arrival - Present on Arrival Any Indicators Present on Arrival: No History of DVT/PE: No History of Uncontrolled Diabetes: No Urinary Catheter: No History of Decub. Ulcer: No History Surgical Site Infection Following: None - Disposition Have Diagnosis and Disposition been Completed?: Yes Diagnosis: Subconjunctival hemorrhage Disposition: HOME/ ROUTINE Disposition Time: 13:25 Patient Plan: Discharge Condition: STABLE Discharge Instructions (ExitCare): Subconjunctival Hemorrhage Additional Instructions: Follow up with your Doctor/Plant Culture Manager Return to Emergency department for any new or worsening symptoms Referrals: Vikas Garcias [Staff Provider] - Follow up with primary Forms: [employer] (Belarusian), WORK NOTE
[2018-05-19 13:32] VITALS: PULSE 81; RESP 19; TEMP 98.2; O2SAT 98
== END 2018-05-19 13:32 | disposition home or self-care (01) ==
LOC: ED 12:35
DX: H11.30 Conjunctival hemorrhage, unspecified eye (principal)